=== PATIENT | male | born 1960 | race Caucasian/White ===

== ENCOUNTER 2022-09-19 16:21 | Inpatient (IN) ==
[2022-09-19 19:17] LABS: Hematocrit (blood only) 29.5 % (40.1-51.0); Hemoglobin 10.8 g/dl (14.0-18.0); Mean Corpuscular Hemoglobin 32.8 pg (25.0-34.0); Mean Corpuscular Hgb Conc 36.6 g/dL (32.0-36.0); Mean Corpuscular Volume 89.7 fL (80.0-100.0); Mean Platelet Volume 9.3 fL (9.4-12.4); Platelet Count 355 K/uL (130-400); RDW Coefficient of Variation 15.1 % (11.5-14.5); RDW Standard Deviation 49.1 fL (36.4-46.3); Red Blood Count 3.29 M/uL (4.63-6.08); White Blood Count 17.84 K/ul (4.8-10.8)
[2022-09-19 19:33] LABS: Basophils # (auto) 0.02 K/uL (0-0.2); Basophils % (auto) 0.1 %; Eosinophils # (auto) 0.03 K/uL (0-0.50); Eosinophils % (auto) 0.2 %; Immature Granulocytes # (auto) 0.48 K/uL (0.00-0.02); Immature Granulocytes % (auto) 2.7 %; Lymphocytes # (auto) 0.32 K/uL (1.2-3.4); Lymphocytes % (auto) 1.8 %; Monocytes % (auto) 4.5 %; Neutrophils # (auto) 16.19 K/uL (1.4-6.5); Neutrophils % (auto) 90.7 %
[2022-09-19 20:34] LABS: Alanine Aminotransferase 145 U/L (7-52); Albumin Level 2.6 gm/dl (3.4-5.0); Anion Gap 9 (3-11); Aspartate Aminotransferase 147 U/L (13-39); Carbon Dioxide 25 mmol/L (21-32); Chloride 91 mmol/L (98-107); Globulin 2.5 gm/dl (2.5-4.0); Glucose 113 mg/dl (70-99(Fasting)); Potassium 2.7 mmol/L (3.5-5.1); Sodium 125 mmol/L (136-145); Total Protein 5.1 gm/dl (6.0-8.3)
--- NOTE | 2022-09-19 21:10 | Ultrasound Report ---
US abdomen limited CLINICAL HISTORY: Jaundice, outpt elev bilirubin TECHNIQUE: Multiple real-time sonographic images of the right upper quadrant were obtained. Comparison: None available at the time of this dictation. FINDINGS: Liver is heterogeneous and enlarged. Multiple hypoechoic areas are seen measuring up to 8.1 x 3.5 x 7 .6 cm. No intrahepatic ductal dilatation is seen. The gallbladder is distended. There is a small am ount of sludge. The gallbladder wall measures 2 mm. Trace pericholecystic fluid is seen. The common d uct measures 2.5 cm in diameter at the level of the hepatic artery. Dilation of the intra and extrah epatic biliary ducts are noted. The pancreas is heterogeneous in the pancreatic duct is enlarged to 5 mm. There is an ill-defined pancreatic head lesion measuring approximately 3.5 x 3.5 x 3.3 cm. The right kidney shows normal echogenicity, cortical thickness and renal contour. The right kidney sh ows no evidence of hydronephrosis or mass. No ascites or free fluid is seen in Ambriz's pouch. IMPRESSION: Findings are concerning for pancreatic head malignancy with enlargement of the common bile duct and p ancreatic duct. Hypoechoic lesions in the liver are nonspecific, however metastatic lesions of pancre atic cancer is the diagnosis of exclusion. ACT 112: Negative or not required by law. Electronically signed by: Jacek Rey M.D. 09/19/2022 9:07 PM
--- NOTE | 2022-09-19 21:27 | Emergency Department Note ---
Impression & Plan Painless jaundice, Mass of pancreas, Transaminitis, Total bilirubin, elevated, Gait instability ED Provider Note HISTORY OF PRESENT ILLNESS: Patient is a 62-year-old male presenting with painless jaundice. Patient reports that he has had transient yellow discoloration of his skin and eyes for the last 2 weeks. He reports that discoloration seem to go away and then starting a week ago he has had persistent discoloration. He reports "I look like a banana." He denies any abdominal pain, nausea or vomiting. He reports his stool has been proctor in color and more loose than normal. He denies any fevers. He had blood work performed at his PCPs office today which showed trans aminitis and elevated bilirubin and he was referred to the emergency department for further evaluation. Patient does report that in the last 2 years he is increased his alcohol consumption and drinks 4 beers daily in - on the weekends. Denies any recent travel. Family at bedside reports that the patient has had normal mentation over the last week. Patient reports that in the last week he has had significant gait instability and has been unable to ambulate on his own. ROS: as above PHYSICAL EXAM: Constitutional: Patient appears in no acute distress. HENT: Head: Normocephalic and atraumatic. Eyes: EOMI, PERRL. Profound scleral icterus Mouth/Throat: Mucous membranes moist. Neck: Trachea midline. Neck supple. Cardiovascular: Tachycardic with regular rhythm. No murmurs, rubs or gallops. Intact distal pulses. Pulmonary/Chest: No respiratory distress. Breath sounds clear and equal bilaterally. No wheezes or rales. Abdominal: BS +. Abdomen soft, no tenderness, rebound or guarding. Back: No midline spinal tenderness, no paraspinal tenderness, no CVA tenderness. Musculoskeletal: No edema, tenderness or deformity noted. No appreciable asterixis Skin: Warm and dry. Diffuse jaundice Psychiatric: Appropriate mood and affect for situation. Neurological: Alert and keenly responsive. CN II-XII grossly intact, moving all extremities equally and fully. MDM: - Vitals signs showed tachycardia. - History obtained via patient. Patient presents with painless jaundice and gait instability. Patient reports he has been having yellow discoloration of his skin for the last 2 weeks, but it has been persistent in the last week. He reports in the last week he has had difficulty ambulating. - Chronic conditions affecting care: alcohol abuse - Differential diagnoses include, but are not limited to: Cholecystitis; cholelithiasis; pancreatic mass; Ascending cholangitis - Order placed for continuous cardiac monitoring. At this time, monitor showed rate of 110 bpm with normal sinus rhythm, per my interpretation. - External medical records reviewed. No previous documentation in our [facility] medical record. - EKG reviewed by myself showed normal sinus rhythm. Noted to have bifascicular block. Rate 94 bpm. Normal intervals. No previous EKGs noted. - Laboratory workup interpreted by myself showed leukocytosis (WBC 17.84); anemia (Hgb 10.8); hyponatremia (Na 125); hypokalemia (K 2.7); transaminitis (AST 147; ALT 145); elevated bilirubin (total bili 35); [] - Abdominal US showed findings concerning for pancreatic head malignancy with enlargement of the common bile duct and pancreatic duct. Also noted to have some nonspecific lesions in the liver concerning for possible metastasis. - Discussed results with patient and his family at bedside. Plan for admission. - CT abdomen/pelvis ordered for further evaluation of pancreatic mass. CT head also ordered to assess for any possible intracranial metastases as a cause for patient's ambulatory dysfunction. - Patient given 1L NS and 20 mEq IV potassium in ER. - MELD-Na score (based on estimated Cr of 1.0) 27 with estimated 90 day mortality of 27-32%. - Discussion was had with social science research assistant about patient's case and need for admission - Hospitalist, Dr. Dozier, consulted for admission. - Patient admitted to [facility] service for further evaluation and management. ASSESSMENT AND PLAN: Diagnosis: Painless jaundice; pancreatic malignancy; elevated bilirubin; transaminitis; gait instability; ambulatory dysfunction; hypokalemia; hyponatremia Plan: admit Past Med/Surg History Social History Smoking Status: Never smoker Feels Safe at Home: Yes Allergies Allergies Allergy/AdvReac Type Severity Reaction Status Date / Time No Known Allergies Allergy Unverified 09/19/22 22:44 Home Meds Home Medications Medication Instructions Recorded Confirmed No Known Home Medications 09/19/22 09/19/22 Results & Data (ED) Vital Signs Vital Signs - 24 hr 09/19/22 16:36 09/19/22 22:00 Temperature 37.0 C Temperature Source Oral Pulse Rate 112 H Pulse Rate [Apical] 81 Pulse Rhythm Regular Pulse Strength Normal Respiratory Rate 19 14 Respiratory Effort / Characteristics Non-Labored Non-Labored Respiratory Depth Normal Normal Respiratory Pattern Regular Blood Pressure 121/74 Blood Pressure [Right Arm] 131/76 Blood Pressure Mean 89 Blood Pressure Mean [Right Arm] 94 Blood Pressure Position Sitting Pulse Oximetry 97 99 Oxygen Delivery Method Room Air Room Air Sepsis Recent Fever Within 48 Hours No Sepsis New/Unexplained Change in Mental Status N/A Sepsis Action Taken by Nursing No Action Required Laboratory Data 09/19/22 18:35 09/19/22 18:35 Lab Results 09/19/22 09/19/22 09/19/22 Range/Units 18:35 18:35 21:47 WBC 17.84 H (4.8-10.8) K/ul RBC 3.29 L (4.63-6.08) M/uL Hgb 10.8 L (14.0-18.0) g/dl Hct 29.5 L (40.1-51.0) % MCV 89.7 (80.0-100.0) fL MCH 32.8 (25.0-34.0) pg MCHC 36.6 H (32.0-36.0) g/dL RDW Std Deviation 49.1 H (36.4-46.3) fL RDW Coeff of Jael 15.1 H (11.5-14.5) % Plt Count 355 (130-400) K/uL MPV 9.3 L (9.4-12.4) fL Immature Gran % (Auto) 2.7 % Neut % (Auto) 90.7 % Lymph % (Auto) 1.8 % [place] % (Auto) 4.5 % Eos % (Auto) 0.2 % Baso % (Auto) 0.1 % Neut # (Auto) 16.19 H (1.4-6.5) K/uL Lymph # (Auto) 0.32 L (1.2-3.4) K/uL [place] # (Auto) 0.80 (0.24-0.82) K/uL Eos # (Auto) 0.03 (0-0.50) K/uL Baso # (Auto) 0.02 (0-0.2) K/uL Immature Gran # (Auto) 0.48 H (0.00-0.02) K/uL PT (9.0-12.0) Seconds INR (0.9-1.1) Sodium 125 L (136-145) mmol/L Potassium 2.7 L (3.5-5.1) mmol/L Chloride 91 L (98-107) mmol/L Carbon Dioxide 25 (21-32) mmol/L Anion Gap 9 (3-11) BUN TNP Creatinine TNP Est Cr Clr Drug Dosing TNP Est GFR ( Amer) TNP Est GFR (Non-Af Amer) TNP BUN/Creatinine Ratio TNP Glucose 113 H (70-99(Fasting)) mg/dl Calcium 8.0 L (8.5-10.1) mg/dl Total Bilirubin 35.0 H (0.2-1.0) mg/dl AST 147 H (13-39) U/L ALT 145 H (7-52) U/L Alkaline Phosphatase TNP Ammonia 36.0 (18-72) umol/L Total Protein 5.1 L (6.0-8.3) gm/dl Albumin 2.6 L (3.4-5.0) gm/dl Globulin 2.5 (2.5-4.0) gm/dl Albumin/Globulin Ratio 1.0 (0.9-2) Lipase TNP 09/19/22 Range/Units 21:47 WBC (4.8-10.8) K/ul RBC (4.63-6.08) M/uL Hgb (14.0-18.0) g/dl Hct (40.1-51.0) % MCV (80.0-100.0) fL MCH (25.0-34.0) pg MCHC (32.0-36.0) g/dL RDW Std Deviation (36.4-46.3) fL RDW Coeff of Jael (11.5-14.5) % Plt Count (130-400) K/uL MPV (9.4-12.4) fL Immature Gran % (Auto) % Neut % (Auto) % Lymph % (Auto) % [place] % (Auto) % Eos % (Auto) % Baso % (Auto) % Neut # (Auto) (1.4-6.5) K/uL Lymph # (Auto) (1.2-3.4) K/uL [place] # (Auto) (0.24-0.82) K/uL Eos # (Auto) (0-0.50) K/uL Baso # (Auto) (0-0.2) K/uL Immature Gran # (Auto) (0.00-0.02) K/uL PT 20.9 H (9.0-12.0) Seconds INR 2.0 H (0.9-1.1) Sodium (136-145) mmol/L Potassium (3.5-5.1) mmol/L Chloride (98-107) mmol/L Carbon Dioxide (21-32) mmol/L Anion Gap (3-11) BUN Creatinine Est Cr Clr Drug Dosing Est GFR ( Amer) Est GFR (Non-Af Amer) BUN/Creatinine Ratio Glucose (70-99(Fasting)) mg/dl Calcium (8.5-10.1) mg/dl Total Bilirubin (0.2-1.0) mg/dl AST (13-39) U/L ALT (7-52) U/L Alkaline Phosphatase Ammonia (18-72) umol/L Total Protein (6.0-8.3) gm/dl Albumin (3.4-5.0) gm/dl Globulin (2.5-4.0) gm/dl Albumin/Globulin Ratio (0.9-2) Lipase Administered Medications Potassium Chloride (K Vin / Wtr) 10 meq in 100 mls @ 100 mls/hr IV Q1H CHELSI; Protocol Stop: 09/19/22 23:44 Last Admin: 09/19/22 22:18 Dose: 100 mls/hr Documented By: DANIEL Discontinued Medications Sodium Chloride (Nss 1000ml) 1,000 mls @ 999 mls/hr IV .Q1H1M ONE Stop: 09/19/22 22:33 Last Admin: 09/19/22 22:18 Dose: 999 mls/hr Documented By: DANIEL Imaging Data Radiologist's Impression: Abdomen Ultrasound 09/19/22 17:13 US abdomen limited CLINICAL HISTORY: Jaundice, outpt elev bilirubin TECHNIQUE: Multiple real-time sonographic images of the right upper quadrant were obtained. Comparison: None available at the time of this dictation. FINDINGS: Liver is heterogeneous and enlarged. Multiple hypoechoic areas are seen measuring up to 8.1 x 3.5 x 7.6 cm. No intrahepatic ductal dilatation is seen. The gallbladder is distended. There is a small amount of sludge. The gallbladder wall measures 2 mm. Trace pericholecystic fluid is seen. The common duct measures 2.5 cm in diameter at the level of the hepatic artery. Dilation of the intra and extrahepatic biliary ducts are noted. The pancreas is heterogeneous in the pancreatic duct is enlarged to 5 mm. There is an ill-defined pancreatic head lesion measuring approximately 3.5 x 3.5 x 3.3 cm. The right kidney shows normal echogenicity, cortical thickness and renal contour. The right kidney shows no evidence of hydronephrosis or mass. No ascites or free fluid is seen in Ambriz's pouch. IMPRESSION: Findings are concerning for pancreatic head malignancy with enlargement of the common bile duct and pancreatic duct. Hypoechoic lesions in the liver are nonspecific, however metastatic lesions of pancreatic cancer is the diagnosis of exclusion. ACT 112: Negative or not required by law. Electronically signed by: Jacek Rey M.D. 09/19/2022 9:07 PM Discharge Plan Visit Data Chief Complaint: Abnormal Labs/Diagnostic Testing Stated Complaint: ABNORMAL LABS,REF BY DOC ED Provider: Debbie Sheriff Discharge Problem: Painless jaundice, Mass of pancreas, Transaminitis, Total bilirubin, elevated, Gait instability Forms Stand Alone Forms: My Prolify Prescriptions Prescriptions: No Action No Known Home Medications Referrals Referrals: Rik Redding [Primary Care Provider] -
[2022-09-19] MEDS ORDERED: SODIUM CHLORIDE 0.9% 1000ML 1,000 ML IV ONE (21:33)
[2022-09-19] MEDS: POTASSIUM CHLORIDE / WTR 10 MEQ/100 ML PLCT IV SCH ×2 (22:18→23:16)
--- NOTE | 2022-09-19 22:21 | History & Physical Report ---
Date of Service September 19, 2022 Assessment & Plan (1) Painless jaundice: Plan: 62-year-old male presenting with 2 weeks of painless jaundice. Liver studies significant for obstructive as well as hepatocellular pattern with marked elevation of total bilirubin = 35, AST = 147, ALT = 145. Imaging findings as above with large pancreatic head mass concerning for malignancy as well as evidence of metastatic disease to liver. Patient and family made aware of these findings. Patient reports that he is "not giving up". Admit to medical Check CA 19-9 GI consultation appreciated Oncology consultation appreciated We will keep patient n.p.o. for now for possible biopsy (2) Mass of pancreas: Plan: As above, most highly concerning for pancreatic malignancy. CA 19-9 ordered GI and oncology consultations appreciated Repeat LFTs in a.m. (3) Gait instability: Plan: Patient reports approximately 1 week of gait instability. He does have significant history of frequent alcohol use. Last drink 9 days agomost likely out of window for acute withdrawal. We will check B12 and folate level with a.m. labs High-dose thiamine 500 mg IV for now F/E/Nnormal saline at 100 mL/h x 2 L +10 mEq KCl per liter, repeat chemistry in the morning, n.p.o. for now ProphylaxisLovenox, patient at high risk for DVT given suspected pancreatic cancer Codefull per discussion with patient Dispositionadmit to medical History of Present Illness Chief Complaint: Painless jaundice Primary Care Provider: Rik Redding Rik Kebede is a pleasant 62-year-old male with no significant past medical history presenting with painless jaundice. Patient first noticed intermittent yellowing of his skin and eyes around the end of July he reports his skin would become yellow in color and last for a day or so and then resolve. Over the last 2 weeks he has noted that the jaundice and icterus has been persistent. He has deep yellowing of the skin and eyes as well as tea colored urine. Patient was seen by his primary care physician and had blood work performed which showed elevation of his liver studies therefore he was sent to the ER. Patient reports unsteady gait over the last week. He denies falling. Also reports decreased appetite but increased thirst, sometimes drinking up to 3 gallons of water per day. He notes increased bulk to his stool and that they are proctor in color. Otherwise, patient also denies headache, visual changes, chest pain, shortness of breath. Denies abdominal pain, distention, bloating, nausea, vomiting. Denies weight loss. Patient shoes tobacco. Does drink regularly, reports 4-5 beers daily during the week and up to 12/day on weekends. No history of withdrawal. His last drink was 9 days ago. In the ER patient is afebrile, hemodynamically stable, no acute distress. Son and ex- are at bedside. ER course: Potassium 20 mEq IV, normal saline x1 L Allergies Allergy/AdvReac Type Severity Reaction Status Date / Time No Known Allergies Allergy Unverified 09/19/22 22:44 Home Medications Medication Instructions Recorded Confirmed Type No Known Home Medications 09/19/22 09/19/22 History Past Med/Surg History Medical History No significant past medical history Surgical History No significant past surgical history Family History (Updated 09/20/22 @ 00:32 by Isabel Dozier DO) Other Colorectal cancer Social History (Updated 09/20/22 @ 00:32 by Isabel Dozier DO) Smoking Status: Never smoker Tobacco Type: Smokeless Tobacco (Dip or Chew) Hx Alcohol Use: Yes Hx Substance Use: No Feels Safe at Home: Yes Review of Systems Review of Systems: All systems reviewed & are unremarkable except as noted in HPI & below Physical Exam Physical Exam: General: patient resting comfortably, NAD, non-toxic in appearance, AA&O x 4 Skin: warm, dry, intact, + jaundice, + bruising on right knee HEENT: NC/AT, PERRL, EOMI, + icteric sclera, conjunctiva without injection, external ear normal to inspection and nontender, nares patent, moist mucus membranes, dentition intact, no oropharyngeal lesions, jaundice of oral mucosa noted, neck supple, trachea midline, no LAD, no thyromegaly, no JVD Heart: +S1/S2, regular, no m/r/g Lungs: equal air entry bilaterally, no rales/rhonchi/wheezes Abd: +BS, soft, NT/ND, no masses/organomegaly/ascites Ext: warm, 2+ pulses in UE/LE bilaterally, no clubbing/cyanosis, 2+ pitting edema bilateral lower extremity Neuro: nonfocal, patient AA&O x 4, speech intact, no facial droop, moving all extremities on command with equal strength 5/5, no asterixis Results & Data Results & Data ([facility]) Vital Signs (Past 12 Hours) Vital Signs Temp Pulse Resp BP Pulse Ox O2 Del Method 09/19/22 16:36 37.0 C 112 H 19 121/74 97 Room Air Laboratory Results Laboratory Results WBC 17.84 K/ul (4.8-10.8) H 09/19/22 18:35 RBC 3.29 M/uL (4.63-6.08) L 09/19/22 18:35 Hgb 10.8 g/dl (14.0-18.0) L 09/19/22 18:35 Hct 29.5 % (40.1-51.0) L 09/19/22 18:35 MCV 89.7 fL (80.0-100.0) 09/19/22 18:35 MCH 32.8 pg (25.0-34.0) 09/19/22 18:35 MCHC 36.6 g/dL (32.0-36.0) H 09/19/22 18:35 RDW Std Deviation 49.1 fL (36.4-46.3) H 09/19/22 18:35 RDW Coeff of Jael 15.1 % (11.5-14.5) H 09/19/22 18:35 Plt Count 355 K/uL (130-400) 09/19/22 18:35 MPV 9.3 fL (9.4-12.4) L 09/19/22 18:35 Immature Gran % (Auto) 2.7 % 09/19/22 18:35 Neut % (Auto) 90.7 % 09/19/22 18:35 Lymph % (Auto) 1.8 % 09/19/22 18:35 [place] % (Auto) 4.5 % 09/19/22 18:35 Eos % (Auto) 0.2 % 09/19/22 18:35 Baso % (Auto) 0.1 % 09/19/22 18:35 Neut # (Auto) 16.19 K/uL (1.4-6.5) H 09/19/22 18:35 Lymph # (Auto) 0.32 K/uL (1.2-3.4) L 09/19/22 18:35 [place] # (Auto) 0.80 K/uL (0.24-0.82) 09/19/22 18:35 Eos # (Auto) 0.03 K/uL (0-0.50) 09/19/22 18:35 Baso # (Auto) 0.02 K/uL (0-0.2) 09/19/22 18:35 Immature Gran # (Auto) 0.48 K/uL (0.00-0.02) H 09/19/22 18:35 PT 20.9 Seconds (9.0-12.0) H 09/19/22 21:47 INR 2.0 (0.9-1.1) H 09/19/22 21:47 Sodium 125 mmol/L (136-145) L 09/19/22 18:35 Potassium 2.7 mmol/L (3.5-5.1) L 09/19/22 18:35 Chloride 91 mmol/L (98-107) L 09/19/22 18:35 Carbon Dioxide 25 mmol/L (21-32) 09/19/22 18:35 Anion Gap 9 (3-11) 09/19/22 18:35 BUN TNP 09/19/22 18:35 Creatinine TNP 09/19/22 18:35 Est Cr Clr Drug Dosing TNP 09/19/22 18:35 Est GFR ( Amer) TNP 09/19/22 18:35 Est GFR (Non-Af Amer) TNP 09/19/22 18:35 BUN/Creatinine Ratio TNP 09/19/22 18:35 Glucose 113 mg/dl (70-99(Fasting)) H 09/19/22 18:35 Calcium 8.0 mg/dl (8.5-10.1) L 09/19/22 18:35 Total Bilirubin 35.0 mg/dl (0.2-1.0) H 09/19/22 18:35 AST 147 U/L (13-39) H 09/19/22 18:35 ALT 145 U/L (7-52) H 09/19/22 18:35 Alkaline Phosphatase TNP 09/19/22 18:35 Ammonia 36.0 umol/L (18-72) 09/19/22 21:47 Troponin I High Sens 38.9 pg/ml (0-20) H 09/19/22 18:35 Total Protein 5.1 gm/dl (6.0-8.3) L 09/19/22 18:35 Albumin 2.6 gm/dl (3.4-5.0) L 09/19/22 18:35 Globulin 2.5 gm/dl (2.5-4.0) 09/19/22 18:35 Albumin/Globulin Ratio 1.0 (0.9-2) 09/19/22 18:35 Lipase TNP 09/19/22 18:35 Urine Color Dark Yellow 09/19/22 22:32 Urine Appearance Clear (Clear) 09/19/22 22:32 Urine pH 6.5 (4.5-7.5) 09/19/22 22:32 Ur Specific [place] 1.010 (1.000-1.030) 09/19/22 22:32 Urine Protein Negative (Negative) 09/19/22 22:32 Urine Glucose (UA) Negative (Negative) 09/19/22 22:32 Urine Ketones Negative (Negative) 09/19/22 22:32 Urine Blood Negative (Negative) 09/19/22 22:32 Urine Nitrite Positive (Negative) A 09/19/22 22:32 Urine Bilirubin 3+ (Negative) H 09/19/22 22:32 Urine Urobilinogen Negative (Negative) 09/19/22 22:32 Ur Leukocyte Esterase Negative (Negative) 09/19/22 22:32 Urine WBC (Auto) 0 /hpf (0-5) 09/19/22 22:32 Urine RBC (Auto) 0-4 /hpf (0-4) 09/19/22 22:32 U Hyaline Cast (Auto) 0 /lpf (0-5) 09/19/22 22:32 U Epithel Cells (Auto) 0-5 /lpf (0-5) 09/19/22 22:32 Urine Bacteria (Auto) Negative (Negative) 09/19/22 22:32 SARS-CoV-2, RNA, NAAT NEGATIVE (NEGATIVE) 09/19/22 Unknown Impressions Abdomen Ultrasound 09/19/22 17:13 US abdomen limited CLINICAL HISTORY: Jaundice, outpt elev bilirubin TECHNIQUE: Multiple real-time sonographic images of the right upper quadrant were obtained. Comparison: None available at the time of this dictation. FINDINGS: Liver is heterogeneous and enlarged. Multiple hypoechoic areas are seen measuring up to 8.1 x 3.5 x 7.6 cm. No intrahepatic ductal dilatation is seen. The gallbladder is distended. There is a small amount of sludge. The gallbladder wall measures 2 mm. Trace pericholecystic fluid is seen. The common duct measures 2.5 cm in diameter at the level of the hepatic artery. Dilation of the intra and extrahepatic biliary ducts are noted. The pancreas is heterogeneous in the pancreatic duct is enlarged to 5 mm. There is an ill-defined pancreatic head lesion measuring approximately 3.5 x 3.5 x 3.3 cm. The right kidney shows normal echogenicity, cortical thickness and renal contour. The right kidney shows no evidence of hydronephrosis or mass. No ascites or free fluid is seen in Ambriz's pouch. IMPRESSION: Findings are concerning for pancreatic head malignancy with enlargement of the common bile duct and pancreatic duct. Hypoechoic lesions in the liver are nonspecific, however metastatic lesions of pancreatic cancer is the diagnosis of exclusion. ACT 112: Negative or not required by law. Electronically signed by: Jacek Rey M.D. 09/19/2022 9:[address] abdomen pelvis with contrast: Per stat rad3.7 cm pancreatic head mass causing severe intra and extrahepatic biliary dilatation. Pancreatic duct is also dilated measuring up to 0.8 cm. Findings are consistent with an obstructing primary pancreatic malignancy. Metastatic disease to the posterior right lobe of the liver with at least 2 masses measuring up to 3.5 cm. Numerous tiny nodules within bilateral lower lungs CT head: Per stat radintracranially unremarkable noncontrasted study. Mild mucosal thickening of the left maxillary sinus. 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 ECG Additional Comments: Per my evaluation study reveals normal sinus rhythm at 94 bpm, right bundle branch block present, left anterior fascicular block, NC = 160, QRS = 172, QTc = 575 Code Status & VTE Plan VTE Prophylaxis Plan VTE Prophylaxis will be ordered: Yes PG Care Time/CCT Total # of Minutes Spent Total Time Spent with Patient: Total time spent is greater than 50% in coordination of care (as documented) at patient's floor/unit and/or counseling patient: Coding Level of Care Code 04189 INT INP/OBS CARE MIN Diagnoses Painless jaundice R17 Mass of pancreas K86.89 Gait instability R26.81
[2022-09-19 22:37] LABS: Prothrombin Time 20.9 Seconds (9.0-12.0)
[2022-09-19 23:15] LABS: Appearance Urine Clear (Clear); Bacteria Urine Automated Negative (Negative); Blood Urine Negative (Negative); Cast Urine Automated 0 /lpf (0-5); Color Urine Dark Yellow; Epithelial Cell Urine Auto 0-5 /lpf (0-5); Glucose Urine UA Negative (Negative); Ketones Urine Negative (Negative); Leukocyte Esterase Urine Negative (Negative); Nitrite Urine Positive (Negative); Protein Urine Negative (Negative); RBC Urine Automated 0-4 /hpf (0-4); Urobilinogen Urine Negative (Negative); WBC Urine Automated 0 /hpf (0-5); pH Urine 6.5 (4.5-7.5)
[2022-09-19 23:21] LABS: Troponin I High Sensitivity 38.9 pg/ml (0-20)
[2022-09-19 23:31] LABS: Bilirubin Urine 3+ (Negative)
[2022-09-19] MEDS ORDERED: OPTIRAY 350 100ml IV ONE (23:48)
[2022-09-20] MEDS ORDERED: POTASSIUM CHLORIDE CRTAB 20 MEQ TABCR PO STA (01:47)
[2022-09-20] MEDS ORDERED: ONDANSETRON INJ 2 MG/ML 2 ML VIAL IV PRN (01:47)
[2022-09-20] MEDS ORDERED: POLYETHYLENE (MIRALAX) 17 GM PACK PO PRN (01:47)
[2022-09-20] MEDS ORDERED: DOCUSATE SODIUM 100 MG CAP PO PRN (01:47)
[2022-09-20] MEDS ORDERED: ZOLPIDEM TARTRATE 5 MG TAB PO ONE (02:08)
[2022-09-20] MEDS: POTASSIUM CHLORIDE 10 MEQ in SODIUM CHLORIDE 0.9% 1000ML 1,000 ML IV SCH ×2 (02:25→13:51)
[2022-09-20] MEDS: THIAMINE HCL 500 MG in SODIUM CHLORIDE 0.9% 50 ML IV SCH ×3 (02:26→17:39)
[2022-09-20] MEDS ORDERED: ENOXAPARIN INJ 40 MG/0.4 ML SYR SQ SCH (06:00)
[2022-09-20] MEDS ORDERED: INDOMETHACIN 50 MG SUPP PR ONE (07:09)
--- NOTE | 2022-09-20 07:29 | Hospitalist Progress Note ---
Date of Service September 20, 2022 Assessment & Plan (1) Painless jaundice: (2) Mass of pancreas: (3) Gait instability: Plan 62-year-old male presenting with 2 weeks of painless jaundice. Liver studies significant for obstructive as well as hepatocellular pattern with marked elevation of total bilirubin = 35, AST = 147, ALT = 145. Imaging findings as above with large pancreatic head mass concerning for malignancy as well as evidence of metastatic disease to liver. Patient and family made aware of these findings. Patient reports that he is "not giving up". 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 Jean-Claude Corral on 09/22/2022 * If he has s/s of cholangitis, or any decompensation due to biliary obstruction and not optimized for EUS/ERCP, then would consider transfer to tertiary care center with IR support for percutaneous drain placement. - Oncology consulted Patient's diet advanced for now --- Vitamin K received --- K and Mg received, recheck in AM Mass of pancreas: - As above, most highly concerning for pancreatic malignancy. CA 19-9 ordered GI and oncology consultations appreciated --- Trend LFTs --- Pend EUS/ERCP Gait instability: - Patient reports approximately 1 week of gait instability. - He does have significant history of frequent alcohol use. Last drink 9 days ago most likely out of window for acute withdrawal. We will check B12 and folate level with a.m. labs High-dose thiamine 500 mg IV for now --- PT/OT ordered F/E/N - Regular diet, no IVF, NPO midnight 09/22 for EUS/ERCP ProphylaxisLovenox, patient at high risk for DVT given suspected pancreatic cancer Codefull per discussion with patient Dispositionadmit to medical Admission and Anticipated Discharge Date Admission Date: September 19, 2022 Supervising Physician Co-Signing Physician Notes patient has pancreatic head mass with probable mets to liver. CT head unremarkable. At this time we are consulting hematology/oncology and gastroenterology. Plan for ERCP on Sunday as long as electrolytes are corrected appropriately. Continue to monitor his CMP and CBC to ensure he does not develop cholangitis. Patient is not interested at this time on transfer to tertiary care facility but certainly we understand that this may be necessary if patient is unable to undergo an ERCP and would need a percutaneous drain placement. We will continue to monitor him For his potassium, we will replete as needed and also correct hyponatremia with normal saline; we did obtain urine studies which show no signs of SIADH Subjective Patient was sitting at bedside upon arrival, states that he is feeling well this morning without any pain. He denies any chest pain, dyspnea, abdominal pain, or bowel/bladder changes. He notes that he continues to produce dark urine. Discussed diagnosis and prognosis with patient who expressed understanding and asked questions. Patient endorses good support system, but resources were discussed including nurse navigator and palliative care if he chooses. Patient strongly emphasizes that he will 'fight this and beat this'. Patient notes that his jaundice and weakness have been ongoing for approximately two weeks. He also notes that his last drink was 9 days ago and that he has no desire to ever drink again, in an effort to improve his outcome. Review of Systems Review of Systems: As per HPI Physical Exam Physical Exam: General: patient resting comfortably, NAD, non-toxic in appearance, AA&O x 4 Skin: warm, dry, intact, + jaundice, + bruising on right knee HEENT: NC/AT, PERRL, EOMI, + icteric sclera, conjunctiva without injection, MMM, jaundice of oral mucosa, no LAD, no thyromegaly, no JVD Heart: +S1/S2, regular, no m/r/g Lungs: CTAB, no rales/rhonchi/wheezes Abd: +BS, soft, NT/ND, no masses/organomegaly/ascites Ext: warm, 2+ pulses in UE/LE bilaterally, 2+ pitting edema bilateral lower extremity Neuro: patient AA&O x 4, speech intact Results & Data Results & Data ([facility]) Vital Signs (Past 12 Hours) Vital Signs Temp Pulse Pulse Resp BP Pulse Ox O2 Del Method 09/20/22 01:56 36.9 C 92 H 18 137/81 100 Room Air 09/20/22 00:00 78 16 131/76 99 Room Air 09/19/22 22:00 81 14 131/76 99 Room Air Resident Activity Tracking Resident Involvement: Resident Care Provided Care Provided: Adult Hospital Medicine
--- NOTE | 2022-09-20 07:48 | CT Scan Report ---
CT OF THE HEAD WITHOUT CONTRAST CLINICAL HISTORY: gait instability COMPARISON STUDY: No previous studies for comparison. CT DOSE: 1171.59 mGy.cm TECHNIQUE: Helical axial images of the head were obtained without IV contrast. Automated exposure con trol was utilized for the study. A dose lowering technique was utilized adhering to the principles o f ALARA. FINDINGS: No acute intracranial hemorrhage, midline shift or mass effect is present. The ventricular system is unremarkable. The basal cisterns are patent. No extra-axial collections are present. There are no findings to suggest acute dural sinus thrombosis or acute territorial infarct. No significant calvarial abnormalities are present. There is mild sinus mucosal thickening. IMPRESSION: No acute intracranial findings. ACT 112: Negative or not required by law. Electronically signed by: Ted Dobson M.D. 09/20/2022 7:47 AM
--- NOTE | 2022-09-20 08:34 | CT Scan Report ---
ABDOMEN AND PELVIS CT WITH IV CONTRAST CT DOSE: HISTORY: painless jaundice TECHNIQUE: Multiaxial CT images of the abdomen and pelvis were performed following the use of intrave nous contrast. A dose lowering technique was utilized adhering to the principles of ALARA. COMPARISON STUDY: None. FINDINGS: Calcified mediastinal and hilar lymph nodes. Scattered tree-in-bud nodular opacities seen w ithin the lung bases and a few scattered punctate calcified granulomas. This favors a chronic infecti ous bronchiolitis. No pneumoperitoneum. No pneumatosis. No suspicious lytic or blastic osseous lesion s. The spleen, adrenal glands, and kidneys are unremarkable. No hydronephrosis. Normal caliber abdomi nal aorta. Single mildly enlarged gastrohepatic lymph node on image 146 measuring 14 mm. The bladder is decompressed by Beavers catheter. No pelvic free fluid. Colonic diverticulosis. No evidence for acut e diverticulitis. Moderate fecal retention is noted. No dilated loops of bowel to suggest an obstruct ion. There are severe intra and extrahepatic bile duct dilatation to the level of the distal common b ile duct. The gallbladder is also severely distended. The main pancreatic duct is mildly distended. T here is an ill-defined hypodense mass at the pancreatic head which measures approximately 3.9 cm best seen image 215. Therefore, these findings are highly suspicious for a pancreatic adenocarcinoma. The re are few ill-defined hypodensities within the liver with the largest in the right hepatic lobe geovanna uring 4.2 cm. These likely represent metastatic disease. The superior mesenteric artery is patent. Th e pancreatic mass appears to abut and may partially encase the superior mesenteric artery best seen o n image 220. There is mild narrowing of approximately 20% within the proximal superior mesenteric vei n on image 220. The splenic vein is patent. IMPRESSION: 1. An ill-defined heterogeneous mass within the pancreatic head measuring approximately 3.9 cm. This appears to account for the biliary and pancreatic duct dilatation. Therefore, this is highly suspicio us for a pancreatic adenocarcinoma. This may partially encase the traversing superior mesenteric ras ry and results in mild narrowing of the traversing superior mesenteric vein. 2. A few ill-defined hypodensities within the liver which are highly suspicious for metastatic diseas e. 3. A single mildly enlarged gastrohepatic lymph node. 4. Scattered tree-in-bud nodular airspace opacities within the lung bases favor a chronic infectious bronchiolitis. ACT 112: Negative or not required by law. Electronically signed by: Timothy Alamo M.D. 09/20/2022 8:33 AM
[2022-09-20] MEDS ORDERED: LACTATED RINGER'S 1,000 ML IV SCH (11:15)
--- NOTE | 2022-09-20 12:41 | Gastrointestinal Consultation ---
Date of Consultation September 20, 2022 Assessment & Plan (1) Painless jaundice: (2) Mass of pancreas: (3) Transaminitis: (4) Liver lesion: Patient is a 62 years old male who presented with painless jaundice, found to have elevated LFTs, and abdominal imaging studies concerning for pancreatic head mass suspicious for adenocarcinoma, with also several liver lesions concerning for possible metastatic processes. - Obtain Ca 19-9 - Correct electrolytes (Na, K) - Vit K 5mg IV x 1 , monitor INR - Trend LFTs - NPO after midnight on 09/22 0001Plan for EUS/ERCP by Dr. Jean-Claude Corral on 09/22/2022 - If he has s/s of cholangitis, or any decompensation due to biliary obstruction and not optimized for EUS/ERCP, then would consider transfer to tertiary care center with IR support for percutaneous drain placement. - Oncology consulted Supervising Physician Co-Signing Physician Notes 62 y/o M who presented with painless jaundice that he noticed over the past couple weeks. Family and co-workers noticed he had turned yellow a couple weeks ago and family had been urging him to come to the hospital. He states he is otherwise feeling well and had no other symptoms including weight loss, abdominal pain, N/V, fevers, chills, diarrhea, signs of GI bleeding. On admission he had a CT scan found to have a pancreatic head mass causing biliary obstruction nad partially encasing the SMA with concern for metastatic liver lesions. WBC 17k, total bili 35, AST 147, ALT 145, ALP, K 2.7, Na 125. On exam patient is diffusely jaundiced with scleral icterus and abdomen is soft and non- tender to palpation. Had originally planned for EUS/ERCP today however patient has multiple lab abnormalities (K, Na, and INR) that need to be corrected. Will plan for EUS/ERCP on Sunday after lab abnormalities are corrected. Would give IV vitamin K until Sunday given elevated INR. Daily CBC and CMP. Check CA 19-9 levels. NPO at midnight on . Cover with IV abx for cholangitis given leukocytosis though my suspicion for this is very low as he is afebrile without abd pain and clinically doing well. If he were to decompensate before Friday 09/22 would recommend transfer to tertiary care center for a percutaneous drain placement. Mable Molina, DO Gastroenterology and Hepatology History of Present Illness Reason for Consultation: Pancreatic head mass Requesting Physician: Dr. Isabel Dozier Attending Physician: Dr. Mable Molina History of Present Illness Patient is a 62 years old male with no significant past medical history who presented with jaundice which he started to notice about 2 weeks ago. He repor ts noticing deep yellowing of his skin, whites of his eyes also having tea colored urine. Went to his PCP, who performed outpatient labs and noted that his LFTs were high, thus he was sent to the ER. Patient denies any associated fevers, chills, chest pain, shortness of breath, abdominal pain, nausea, vomiting, or changes in his bowel habits. He does feel quite unsteady on his gait but no falling. Upon evaluation here noted that his white cell count was elevated at 17, he is afebrile, INR up at 2, sodium and potassium low at 125 and 2.7 respectively. LFTs: Bilirubin 35, AST 147, ALT 145, alkaline phosphatase unable to be performed. Lipase not able to be performed. Abdominal imaging studies including abdominal ultrasound and CT abdomen pelvis with contrast showed signs of ill-defined heterogeneous mass within the pancreatic head measuring about 3.9 cm suspicious for pancreatic adenocarcinoma. This mass is partially encased transversing SMA resulting in narrowing of the transverse SMV. There is also biliary and pancreatic duct dilatation. Few ill-defined densities in the liver highly suspicious for metastatic disease. It appears he may also have infectious broncholithiasis He drinks about 5 beers on the weekdays, up to 12 on the weekends. He chews tobacco, denies any illicit drug uses. Denies liver or pancreas ca in the family. Mother w hx of colon ca ( at age 62). Pt denies ever having any colorectal cancer screening Allergies Allergy/AdvReac Type Severity Reaction Status Date / Time No Known Allergies Allergy Verified 09/20/22 11:19 Home Medications Medication Instructions Recorded Confirmed Type No Known Home Medications 09/19/22 09/19/22 History Patient History Medical History No significant past medical history Surgical History No significant past surgical history Family History Other Colorectal cancer Social History Smoking Status: Never smoker Tobacco Type: Smokeless Tobacco (Dip or Chew) Second Hand Exposure: No; Do You Dip or Chew Tobacco: Yes; Tobacco Cessation Education Requested by Patient: Yes Hx Alcohol Use: Yes Alcohol type: beer Hx Substance Use: No Preferred Language: Spanish Communication Ability: Effective Auto Service Mechanic Required: No Beliefs That Will Affect Care: None Current Living Situation: Family Current Living Situation Comment: lives with son and ex- in 1 story home. Other Information That Helps Us Care for You: No Feels Safe at Home: Yes Safety Concerns: Feels Safe At This Time Assistive Devices: None Assistive Devices Comment: reading glasses only Review of Systems Review of Systems: All systems reviewed & are unremarkable except as noted in HPI & below Physical Exam Constitutional: WD/WN, vitals as above well groomed, cooperative and comfortable Eyes: icteric sclera ENMT: external ear and nose normal, oropharynx normal Respiratory: normal respiratory effort, lungs clear to auscultation Cardiovascular: RRR, no murmur, no edema Gastrointestinal (Abdomen): normal bowel sounds, soft, nontender, no hepatosplenomegaly Skin: jaundice Neurologic: Motor/Sensory: no asterixis Psychiatric: A+Ox3, euthymic affect Lymphatic: no lymphedema Results & Data ([facility]) Vital Signs (Past 12 Hours) Vital Signs Temp Pulse Pulse Resp BP Pulse Ox O2 Del Method 09/20/22 11:21 37.7 C H 107 H 20 122/84 96 Room Air 09/20/22 07:44 36.7 C 98 H 16 125/77 94 Room Air 09/20/22 01:56 36.9 C 92 H 18 137/81 100 Room Air 09/20/22 00:00 78 16 131/76 99 Room Air
[2022-09-20] MEDS ORDERED: PHYTONADIONE 5 MG in DEXTROSE 5% 50 ML IV ONE (13:00)
[2022-09-20] MEDS ORDERED: MAGNESIUM SULFATE / D5W 1 GM/100 ML BAG IV ONE (13:00)
[2022-09-20 13:52] LABS: Estimated Average Glucose 85 mg/dl; Hemoglobin A1C 4.6 % (4.5-5.6)
[2022-09-20 13:56] LABS: Vitamin B12 > 1500 pg/ml (180-914)
--- NOTE | 2022-09-20 14:11 | Electrocardiogram Report ---
Test Reason : Blood Pressure : / mmHG Vent. Rate : 094 BPM Atrial Rate : 094 BPM P-R Int : 160 ms QRS Dur : 172 ms QT Int : 460 ms P-R-T Axes : 054 -55 069 degrees QTc Int : 575 ms Normal sinus rhythm Right bundle branch block Left anterior fascicular block Bifascicular block Left ventricular hypertrophy with repolarization abnormality Abnormal ECG No previous ECGs available Confirmed by Tomy Rockwell ([id number]) on 09/20/2022 11:16:42 AM Referred By: Rik Redding Confirmed By:Dmitry Rockwell
[2022-09-20 17:08] LABS: Albumin Level 2.2 gm/dl (3.4-5.0); BUN Creatinine Ratio 13.2 (10-20); Bilirubin,Total 26.3 mg/dl (0.2-1.0); Creatinine Clr Calc Pharmacy 95.7 ml/min; Est GFR (African American) 102.9 ml/min; Est GFR (Non-African American) 88.8 ml/min; Magnesium 2.4 mg/dl (1.7-2.4); Potassium 3.1 mmol/L (3.5-5.1); Total Protein 4.1 gm/dl (6.0-8.3)
[2022-09-20] MEDS ORDERED: PIPERACILLIN/TAZOBACTAM 3.375 GM (over 30 mins) IV ONE (19:30)
[2022-09-20 19:38] LABS: Bilirubin Direct 16.2 mg/dl (0-0.2)
[2022-09-20] MEDS: ACETAMINOPHEN 325 MG TAB PO PRN (22:30)
[2022-09-21] MEDS: PIPERACILLIN/TAZOBACTAM 3.375 GM in DEXTROSE 5% 100 ML IV SCH ×4 (00:02→23:28)
[2022-09-21] MEDS: THIAMINE HCL 500 MG in SODIUM CHLORIDE 0.9% 50 ML IV SCH ×3 (01:14→17:36)
--- NOTE | 2022-09-21 07:36 | Oncology Consultation ---
Date of Consultation September 21, 2022 Assessment & Plan (1) Mass of pancreas: (2) Liver lesion: (3) Electrolyte disturbance: (4) Anemia: Plan Yuval 62-year-old gentleman who presented with painless jaundice, abnormal LFTs and was found to have a pancreatic mass and liver lesions. Clinical presentation highly suggestive of metastatic pancreatic cancer. CA 19-9 pending at time of today's visit. He is scheduled for EUS/ERCP with stent placement and biopsy tomorrow. Will await results. - Would recommend CT chest for full staging. -Work-up for anemia including iron studies, reticulocyte count and LDH -If biopsy confirms pancreatic cancer, he will need Mediport placement for chemotherapy administration. -We will arrange for genetic testing as an outpatient given family history of colon cancer - will eventually benefit from palliative care evaluation If biopsy confirms pancreatic cancer Thank you for this consult. Oncology will continue following patient in the hospital. Please feel free to call if you have any further questions History of Present Illness Reason for Consultation: Concern for pancreatic malignancy Attending Physician: Isabel Dozier, History of Present Illness Pleasant 62-year-old gentleman who presented to the ER [facility] on 09/19/2022 with jaundice. He indicates that he noticed jaundice about 2 weeks prior to presentation. Patient was seen by his PCP who obtained blood work which revealed significant hyperbilirubinemia, transaminitis for which he was told to present to the ER. Labs obtained in the ER revealed total bilirubin of 35, ALT 147, AST 145. He was also found to have multiple electrolyte abnormalities with sodium of 125, potassium 2.7, chloride of 91. Coagulation panel also revealed PT of 20.9 and INR of 2.0. CBC significant for leukocytosis with white count of 17,000, hemoglobin 10.8, hematocrit of 29.5 and MCV of 89.7. Abdominal ultrasound on 09/19/2022 revealed multiple hypoechoic areas in the liver, dilatation of the intra and extrahepatic biliary ducts, enlarged pancreatic duct measuring 5 mm and ill-defined pancreatic head lesion measuring 3.5 x 3.[address] abdomen and pelvis on 09/19/2022 revealed ill-defined heterogeneous mass within the pancreatic head measuring 3.9 cm highly suspicious for pancreatic adenocarcinoma which be partially encase the transverse and superior mesenteric artery resulting in mild narrowing of the transverse and superior mesenteric vein, few ill-defined hypodensities within the liver suspicious for metastatic disease, single mildly enlarged gastrohepatic lymph node and scattered tree-in-bud nodular airspace opacities within the lungs favoring chronic infectious bronchiolitis. He denies chest pain, shortness of breath, abdominal pain, diarrhea, nausea, vomiting, weight loss. Endorses significant alcohol use and chews tobacco. States that his mother was diagnosed with colon cancer at the age of 60 Allergies Allergy/AdvReac Type Severity Reaction Status Date / Time No Known Allergies Allergy Verified 09/20/22 11:19 Home Medications Medication Instructions Recorded Confirmed Type No Known Home Medications 09/19/22 09/19/22 History Patient History Medical History No significant past medical history Surgical History No significant past surgical history Family History Other Colorectal cancer Social History Smoking Status: Never smoker Tobacco Type: Smokeless Tobacco (Dip or Chew) Second Hand Exposure: No; Do You Dip or Chew Tobacco: Yes; Tobacco Cessation Education Requested by Patient: Yes Hx Alcohol Use: Yes Alcohol type: beer Hx Substance Use: No Preferred Language: Swedish Communication Ability: Effective Lookback Coordinator Required: No Beliefs That Will Affect Care: None Current Living Situation: Family Current Living Situation Comment: lives with son and ex- in 1 story home. Other Information That Helps Us Care for You: No Feels Safe at Home: Yes Safety Concerns: Feels Safe At This Time Assistive Devices: None Assistive Devices Comment: reading glasses only Physical Exam Constitutional: WD/WN, vitals as above Eyes: Scleral icterus ENMT: external ear and nose normal, oropharynx normal Respiratory: normal respiratory effort, lungs clear to auscultation Cardiovascular: RRR, no murmur, no edema Gastrointestinal (Abdomen): normal bowel sounds, soft, nontender, no hepatosplenomegaly Results & Data ([facility]) Vital Signs (Past 12 Hours) Vital Signs Temp Pulse Resp BP Pulse Ox O2 Del Method 09/21/22 00:25 37.3 C 90 18 125/74 96 Room Air 09/20/22 23:20 38.3 C H 99 H 16 118/72 95 Room Air 09/20/22 22:27 39.1 C H 101 H 18 116/71 96 Room Air
[2022-09-21 08:00] LABS: INR 1.5 (0.9-1.1); Prothrombin Time 15.5 Seconds (9.0-12.0)
[2022-09-21 08:01] LABS: Alanine Aminotransferase 96 U/L (7-52); Anion Gap 4 (3-11); Aspartate Aminotransferase 79 U/L (13-39); Bilirubin,Total 27.7 mg/dl (0.2-1.0); Calcium 7.1 mg/dl (8.5-10.1); Carbon Dioxide 23 mmol/L (21-32); Chloride 102 mmol/L (98-107); Glucose 121 mg/dl (70-99(Fasting)); Potassium 2.9 mmol/L (3.5-5.1); Sodium 129 mmol/L (136-145)
[2022-09-21 08:05] LABS: Blood Urea Nitrogen 11 mg/dl (6-23); Creatinine Clr Calc Pharmacy 107.5 ml/min; Est GFR (African American) 108.9 ml/min; Est GFR (Non-African American) 93.9 ml/min
[2022-09-21] MEDS ORDERED: POTASSIUM PHOS 3 MMOL/1 ML INFUSION IV STA (08:05)
[2022-09-21] MEDS ORDERED: POTASSIUM CHLORIDE CRTAB 20 MEQ TABCR PO STA ×2 (08:05→14:54)
[2022-09-21] MEDS ORDERED: MAGNESIUM SULFATE / D5W 1 GM/100 ML BAG IV SCH (08:15)
[2022-09-21] MEDS ORDERED: POTASSIUM PHOSPHATE 15 MMOL in SODIUM CHLORIDE 0.9% 250 ML IV ONE (08:15)
[2022-09-21] MEDS ORDERED: PHYTONADIONE 2.5 MG in DEXTROSE 5% 50 ML IV ONE (08:15)
[2022-09-21 09:28] LABS: Hematocrit (blood only) 22.8 % (42.0-52.0); Hemoglobin 8.1 g/dl (14.0-18.0); Mean Corpuscular Hemoglobin 32.7 pg (25.0-34.0); Mean Corpuscular Hgb Conc 35.5 g/dL (32.0-36.0); Mean Corpuscular Volume 91.9 fL (80.0-100.0); Platelet Count 294 K/uL (130-400); RDW Coefficient of Variation 15.8 % (11.5-14.5); RDW Standard Deviation 52.7 fL (36.4-46.3); Red Blood Count 2.48 M/uL (4.70-6.10); White Blood Count 15.78 K/ul (4.8-10.8)
--- NOTE | 2022-09-21 10:24 | Gastroenterology Progress Note ---
Date of Service September 21, 2022 Assessment & Plan (1) Painless jaundice: (2) Mass of pancreas: (3) Transaminitis: (4) Liver lesion: Plan: Patient is a 62 years old male who presented with painless jaundice, found to have elevated LFTs, and abdominal imaging studies concerning for pancreatic head mass suspicious for adenocarcinoma, with also several liver lesions concerning for possible metastatic processes. Febrile episodes overnight but he remains asymptomatic for abdominal pain, nausea or vomiting otherwise. He is currently on Zosyn IV - F/U Ca 19-9 - Correct electrolytes (Na, K) - Vit K 5mg IV x 1 , monitor INR - Trend LFTs - NPO after midnight for EUS/ERCP by Dr. Jean-Claude Corral on 09/22/2022 - Discussed with hospitalist re: goal for electrolyte repletion and repeating BMP later today. If not improved, will plan for transfer to tertiary care center with IR support for percutaneous drain placement. - Oncology consulted Admission and Anticipated Discharge Date Admission Date: September 19, 2022 Supervising Physician Co-Signing Physician Notes 62 y/o M who presented with painless jaundice that he noticed over the past couple weeks. Family and co-workers noticed he had turned yellow a couple weeks ago and family had been urging him to come to the hospital. He states he is otherwise feeling well and had no other symptoms including weight loss, abdominal pain, N/V, fevers, chills, diarrhea, signs of GI bleeding. On admission he had a CT scan found to have a pancreatic head mass causing biliary obstruction nad partially encasing the SMA with concern for metastatic liver lesions. WBC 17k, total bili 35, AST 147, ALT 145, ALP, K 2.7, Na 125. On exam patient is diffusely jaundiced with scleral icterus and abdomen is soft and non- tender to palpation. Will plan for EUS/ERCP tomorrow if lab abnormalities are corrected. Would give IV vitamin K until Sunday given elevated INR. Daily CBC and CMP. Check CA 19-9 levels. NPO at midnight tonight. Cover with IV abx for cholangitis given leukocytosis though my suspicion for this is very low as he is afebrile without abd pain and clinically doing well. If he were to decompensate before Friday 09/22 would recommend transfer to tertiary care center for a percutaneous drain placement. Mable Molina, DO Gastroenterology and Hepatology Subjective Pt had large BM wo rectal bleeding or dark tarry stools this morning. He denies any abdominal pain, nausea or vomiting Review of Systems Review of Systems: All systems reviewed & are unremarkable except as noted in HPI & below Physical Exam Constitutional: WD/WN, vitals as above well groomed, cooperative and comfortable Eyes: EOMs intact, icteric sclera ENMT: external ear and nose normal, oropharynx normal Respiratory: normal respiratory effort, lungs clear to auscultation Cardiovascular: RRR, no murmur, no edema Gastrointestinal (Abdomen): normal bowel sounds, soft, nontender, no hepatosplenomegaly Skin: + jaundice Psychiatric: A+Ox3, euthymic affect Lymphatic: no lymphedema Results & Data ([facility]) Vital Signs (Past 12 Hours) Vital Signs Temp Pulse Pulse Resp BP Pulse Ox O2 Del Method 09/21/22 10:07 36.8 C 77 17 114/74 100 Room Air 09/21/22 09:32 76 16 113/70 99 Room Air 09/21/22 09:19 36.8 C 75 16 114/75 99 Room Air 09/21/22 09:00 77 16 116/76 97 Room Air 09/21/22 07:57 36.4 C L 71 17 112/71 98 Room Air 09/21/22 00:25 37.3 C 90 18 125/74 96 Room Air 09/20/22 23:20 38.3 C H 99 H 16 118/72 95 Room Air 09/20/22 22:27 39.1 C H 101 H 18 116/71 96 Room Air
--- NOTE | 2022-09-21 10:44 | Medical Student Progress Note ---
Date of Service September 21, 2022 Assessment & Plan (1) Painless jaundice: Plan: 62-year-old male presented to the ED with 2 weeks of painless jaundice found to have LFTs consistent with both obstructive and hepatocellular pattern and imaging findings suggestive of large pancreatic head mass with evidence of metastatic disease to liver. Painless jaundice likely 2/2 Pancreatic Malignancy -CA 19-9 pending -GI consultation appreciated -Correct electrolytes (Na, K) -INR of 2.0 on admission (09/19), INR of 1.5 today (09/21) -Vit K 5mg IV x 1, monitor INR -AST of 86, ALT of 107, Alk Phos of 289, Total Bilirubin of 34.6 w/ direct hyperbilirubinemia, albumin of 2.3 -Trend LFTs -NPO after midnight on 09/22 -Plan for EUS/ERCP by Dr. Jean-Claude Corral on 09/22 -Currently on Zosyn to cover for possible cholangitis -Consider transfer to tertiary care center with IR support for percutaneous drain placement if decompensated due to biliary obstruction and not optimized for EUS/ERCP -Oncology consulted -Patient's diet advanced for now (2) Mass of pancreas: Plan: -Abdominal US and Abdomen/Pelvic CT showed large pancreatic head mass with evidence of metastatic disease to liver -CA 19-9 pending -GI and oncology consultations appreciated -Trend LFTs -Pending EUS/ERCP by Dr. Jean-Claude Corral on 09/22 (3) Electrolyte disturbance: Plan: -K and Mg received yesterday -K 2.7 on admission (09/19), K 3.0 today (09/21) -Mg 2.4 yesterday (09/20), Mg 2.5 today (09/21) -Phosphorus of 2.0 today (09/21) -Corrected Ca today of 8.46 (mildly low) -Replete K, Mg, and phosphorus as needed (4) Gait instability: Plan: -Patient reports approximately 1 week of gait instability. -He does have significant history of frequent alcohol use. -Last drink 9 days ago most likely out of window for acute withdrawal. -B12 >1500 and Folate 11.29 -Continue high-dose thiamine 500 mg IV for now -PT/OT ordered (5) Anemia: Plan: -Presented with hgb of 8.1, normocytic MCV of 91.9, and elevated RDW of 52.7 -Mildly low serum iron of 31, ferritin pending (6) Leukocytosis: Plan: -WBC of of 15.78 on admission with neutrophilic dominance -Differential between reactive secondary to hepatic outflow obstruction vs infectious -Fevers overnight, currently afebrile with temp of 37.1 -Continue Zosyn Plan F/E/N - Regular diet, no IVF, NPO midnight 09/22 for EUS/ERCP ProphylaxisLovenox, patient at high risk for DVT given suspected pancreatic cancer Codefull per discussion with patient Dispositionadmitted to medical Admission and Anticipated Discharge Date Admission Date: September 19, 2022 Supervising Attestation I saw and examined patient. I agree with the assessment and plan as documented by the medical delivery technician/medical student with any additional comments as below patient has pancreatic head mass with probable mets to liver. CT head unremarkable. At this time we are consulting hematology/oncology and gastroenterology. Plan for ERCP on Sunday as long as electrolytes are corrected appropriately. Continue to monitor his CMP and CBC to ensure he does not develop cholangitis. Patient is not interested at this time on transfer to tertiary care facility but certainly we understand that this may be necessary if patient is unable to undergo an ERCP and would need a percutaneous drain placement. We will continue to monitor him For his potassium, we will replete as needed and also correct hyponatremia with normal saline; we did obtain urine studies which show no signs of SIADH Subjective 62-year-old male presented to the ED with 2 weeks of painless jaundice found to have LFTs consistent with both obstructive and hepatocellular pattern and imaging findings suggestive of large pancreatic head mass with evidence of metastatic disease to liver. Today pt has no new concerns. Pt states he is motivated to beat this. Pt has no interest in drinking alcohol again. Pt understands the plan to be NPO at nv dnight pending ERCP tomorrow. Review of Systems Respiratory: no dyspnea Cardiovascular: no chest pain Gastrointestinal: no abdominal pain, no constipation and no diarrhea/loose stools Bowel movement this morning Neurologic: no numbness and no paresthesia Psychiatric: no visual hallucinations Physical Exam Eyes: Scleral icterus Respiratory: normal respiratory effort, lungs clear to auscultation Gastrointestinal (Abdomen): Mild hepatomegaly on palpation. No pain with palpation. Normal bowel sounds. Skin: Diffusely jaundiced Neurologic: patellar DTR's 2+ bilat, sensation intact Psychiatric: Orientation: alert and cooperative Affect: euthymic affect Results & Data ([facility]) Vital Signs (Past 12 Hours) Vital Signs Temp Pulse Pulse Resp BP Pulse Ox O2 Del Method 09/21/22 10:07 36.8 C 77 17 114/74 100 Room Air 09/21/22 09:32 76 16 113/70 99 Room Air 09/21/22 09:19 36.8 C 75 16 114/75 99 Room Air 09/21/22 09:00 77 16 116/76 97 Room Air 09/21/22 07:57 36.4 C L 71 17 112/71 98 Room Air 09/21/22 00:25 37.3 C 90 18 125/74 96 Room Air 09/20/22 23:20 38.3 C H 99 H 16 118/72 95 Room Air 09/20/22 22:27 39.1 C H 101 H 18 116/71 96 Room Air
[2022-09-21 12:47] LABS: Basophils # (auto) 0.03 K/uL (0-0.2); Basophils % (auto) 0.2 %; Eosinophils # (auto) 0.03 K/uL (0-0.50); Eosinophils % (auto) 0.2 %; Immature Granulocytes # (auto) 0.33 K/uL (0.01-0.20); Immature Granulocytes % (auto) 2.1 %; Lymphocytes # (auto) 0.27 K/uL (1.2-3.4); Lymphocytes % (auto) 1.7 %; Monocytes # (auto) 0.52 K/uL (0.11-0.59); Monocytes % (auto) 3.3 %; Neutrophils % (auto) 92.5 %; Polychromasia 1+; Target Cells 1+
[2022-09-21 14:38] LABS: Albumin Level 2.3 gm/dl (3.4-5.0); Calcium 7.1 mg/dl (8.5-10.1); Globulin 2.2 gm/dl (2.5-4.0); Total Protein 4.5 gm/dl (6.0-8.3)
[2022-09-21 14:40] LABS: BUN Creatinine Ratio 13.3 (10-20); Creatinine Clr Calc Pharmacy 104.9 ml/min; Est GFR (African American) 107.8 ml/min
[2022-09-21 14:41] LABS: Bilirubin,Total 34.6 mg/dl (0.2-1.0)
[2022-09-21] MEDS: SODIUM CHLORIDE 0.9% 500 ML IV SCH ×3 (15:34→23:35)
[2022-09-21 20:50] LABS: INR 1.5 (0.9-1.1); Prothrombin Time 15.4 Seconds (9.0-12.0)
[2022-09-21 22:15] LABS: Anion Gap 7 (3-11); Calcium 6.6 mg/dl (8.5-10.1); Carbon Dioxide 19 mmol/L (21-32); Chloride 98 mmol/L (98-107); Glucose 139 mg/dl (70-99(Fasting)); Potassium 3.6 mmol/L (3.5-5.1); Sodium 124 mmol/L (136-145)
[2022-09-21] MEDS ORDERED: FUROSEMIDE 40 MG/4 ML VIAL IV ONE (22:53)
[2022-09-22] MEDS: THIAMINE HCL 500 MG in SODIUM CHLORIDE 0.9% 50 ML IV SCH ×3 (01:36→17:36)
[2022-09-22] MEDS ORDERED: STAT IV STA (06:50)
[2022-09-22] MEDS ORDERED: CALCIUM GLUCONATE 10% 1,000 MG in DEXTROSE 5% 50 ML IV ONE (06:50)
--- NOTE | 2022-09-22 07:32 | Hospitalist Progress Note ---
Date of Service September 22, 2022 Assessment & Plan (1) Painless jaundice: (2) Mass of pancreas: (3) Gait instability: Plan 62-year-old male presenting with 2 weeks of painless jaundice. Liver studies significant for obstructive as well as hepatocellular pattern with marked elevation of total bilirubin = 35, AST = 147, ALT = 145. Imaging findings as above with large pancreatic head mass concerning for malignancy as well as evidence of metastatic disease to liver. Patient and family made aware of these findings. Patient reports that he is "not giving up". Patient and family request that all news be shared with patient in the presence of family. Painless jaundice likely 2/2 Pancreatic Malignancy CA 19-9 [id number] (elevated) GI consultation appreciated * EGD/ERCP/EUS performed today, biopsies obtained, results above - Oncology consulted * Recommending CT Chest for staging, anemia workup, and Mediport if bx confirms pancreatic cancer * Recommending outpatient genetic testing and eventual palliative care consultation of confirmed pancreatic cancer --- Hyponatremia, suspected 2/2 hypervolemia, improving w/ Lasix, currently 130 --- Hypokalemia, improving w/ supplementation --- Hypocalcemic, received Calcium gluconate Mass of pancreas: - As above, most highly concerning for pancreatic malignancy. CA 19-9 ordered GI and oncology consultations appreciated --- Transaminitis stable --- EUS/ERCP as above, pending tissue diagnosis Gait instability: - Patient reports approximately 1 week of gait instability. - He does have significant history of frequent alcohol use. Last drink 9 days ago most likely out of window for acute withdrawal. We will check B12 and folate level with a.m. labs High-dose thiamine 500 mg IV for now --- PT/OT ordered F/E/N - Regular diet, no IVF ProphylaxisLovenox, patient at high risk for DVT given suspected pancreatic cancer Codefull per discussion with patient Dispositionadmit to medical Admission and Anticipated Discharge Date Admission Date: September 19, 2022 Supervising Physician Co-Signing Physician Notes 62-year-old male with no significant past medical history presenting with painless jaundice in setting of pancreatic mass. CA 19-9 significantly elevated. ERCP/EUS/EGD today with biopsies obtained with concern of multiple hepatic metastatic lesions and concerning lymphadenopathy with stent placed in common bile duct. Examined patient at bedside with resident. Discussion with patient's son Eliezer on the importance of family support when updating patient with prognosis and recommendations on next steps. Agree with documented history, physical exam, and plan. Subjective Rik is in good spirits today and has no acute concerns, he was resting comfortably in his bed upon arrival and noted that he was hungry. He denies any CP, dyspnea or pleuritic pain. He is not experiencing any abdominal pain or bloating. Family was at bedside and all questions were answered. Review of Systems Review of Systems: As per HPI Physical Exam Physical Exam: General: patient resting comfortably, NAD, non-toxic in appearance, AA&O x 4 Skin: warm, dry, intact, + jaundice HEENT: NC/AT, + icteric sclera, dry mucous membranes, jaundice of oral mucosa, no JVD Heart: RRR, normal S1/S2, no MRG Lungs: CTAB, no rales/rhonchi/wheezes Abd: +BS, soft w/o distension, no TTP or palpable masses Ext: warm, 2+ pulses in UE/LE bilaterally, trace pitting edema bilateral lower extremity Results & Data Results & Data ([facility]) Vital Signs (Past 12 Hours) Vital Signs Temp Pulse Resp BP Pulse Ox O2 Del Method 09/21/22 21:44 37.3 C 85 16 116/71 97 Room Air Diagnostic Findings EUS Impression 09/22/22: - Multiple metastatic lesions were found in the visualized portion of the liver. Fine needle aspiration performed. - There was dilation in the common bile duct which measured up to 10 mm. - Hyperechoic material consistent with sludge was visualized endosonographically in the gallbladder. - A mass was identified in the pancreatic head. This was staged T4 N1 M1 (based on metastasis to liver and pending cytologic confirmation) by endosonographic criteria. The staging applies if malignancy is confirmed. - A few malignant-appearing lymph nodes were visualized in the celiac region (level 20). - Endosonographic images of the left adrenal gland were unremarkable. Endo Retro Cholangiopancreatogram 09/22/22 [place] ERCP biliary ductal FINDINGS: The ampulla was cannulated and contrast was injected into the common bile duct. There is a tight/severe stricture at the distal common bile duct. A common bile duct stent was placed and appears in good position. IMPRESSION: Fluoroscopic assistance as described above. 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
[2022-09-22 07:53] LABS: Hematocrit (blood only) 23.3 % (42.0-52.0); Hemoglobin 8.4 g/dl (14.0-18.0); Mean Corpuscular Hemoglobin 32.6 pg (25.0-34.0); Mean Corpuscular Hgb Conc 36.1 g/dL (32.0-36.0); Mean Corpuscular Volume 90.3 fL (80.0-100.0); Mean Platelet Volume 8.7 fL (9.4-12.4); Platelet Count 327 K/uL (130-400); RDW Coefficient of Variation 15.6 % (11.5-14.5); Red Blood Count 2.58 M/uL (4.70-6.10)
[2022-09-22] MEDS: PIPERACILLIN/TAZOBACTAM 3.375 GM in DEXTROSE 5% 100 ML IV SCH ×2 (08:01→15:53)
[2022-09-22 08:20] LABS: Anion Gap 6 (3-11); Calcium 7.6 mg/dl (8.5-10.1); Carbon Dioxide 23 mmol/L (21-32); Chloride 99 mmol/L (98-107); Potassium 2.9 mmol/L (3.5-5.1); Sodium 128 mmol/L (136-145)
[2022-09-22 08:23] LABS: Basophils # (auto) 0.05 K/uL (0-0.2); Basophils % (auto) 0.3 %; Eosinophils # (auto) 0.08 K/uL (0-0.50); Eosinophils % (auto) 0.5 %; Immature Granulocytes # (auto) 0.29 K/uL (0.01-0.20); Immature Granulocytes % (auto) 1.7 %; Lymphocytes # (auto) 0.25 K/uL (1.2-3.4); Lymphocytes % (auto) 1.5 %; Monocytes # (auto) 0.54 K/uL (0.11-0.59); Monocytes % (auto) 3.2 %; Neutrophils # (auto) 15.89 K/uL (1.40-6.50); Neutrophils % (auto) 92.8 %; Polychromasia 1+; Target Cells 1+; Toxic Granulation 1+; Toxic Vacuolation 1+
[2022-09-22] MEDS ORDERED: INDOMETHACIN 50 MG SUPP PR ONE ×2 (08:30→09:20)
[2022-09-22 08:37] LABS: INR 1.4 (0.9-1.1)
[2022-09-22] MEDS ORDERED: FUROSEMIDE 40 MG/4 ML VIAL IV ONE (08:48)
[2022-09-22] MEDS ORDERED: fentaNYL citrate 100 MCG/2 ML VIAL ONE (08:53)
[2022-09-22] MEDS ORDERED: MIDAZOLAM HCL 1 MG/ML 2ML VIAL ONE (08:54)
[2022-09-22] MEDS ORDERED: ONDANSETRON INJ 2 MG/ML 2 ML VIAL ONE (08:59)
[2022-09-22] MEDS ORDERED: LIDOCAINE 2% MPF LOCAL 5 ML VIAL INFIL ONE (08:59)
[2022-09-22] MEDS ORDERED: PROPOFOL IV EMULSION 10 MG/ML 20 ML VIAL IV ONE (08:59)
[2022-09-22] MEDS ORDERED: SUCCINYLCHOLINE CHLORIDE 20 MG/ML 10 ML VIAL IV ONE (08:59)
--- NOTE | 2022-09-22 09:10 | History & Physical Bridge Note ---
Date of Service September 22, 2022 History & Physical Bridge Note I have examined the patient, reviewed the History & Physical and in the interval since the performance of the History & Physical I have noted the following changes of clinical significance: no changes noted. The patient presented with obstructive jaundice and evidence of a pancreatic mass on imaging. We are planning to do EGD, EUS and ERCP today. I have discussed the risks and benefits of EGD, EUS and ERCP to include bleeding, infection, perforation, pain, pancreatitis, insufficient cellularity, inability to cannulate the bile duct and need for follow-up studies. CT 09/19/22 1. An ill-defined heterogeneous mass within the pancreatic head measuring approximately 3.9 cm. This appears to account for the biliary and pancreatic duct dilatation. Therefore, this is highly suspicious for a pancreatic adenocarcinoma. This may partially encase the traversing superior mesenteric artery and results in mild narrowing of the traversing superior mesenteric vein. 2. A few ill-defined hypodensities within the liver which are highly suspicious for metastatic disease. 3. A single mildly enlarged gastrohepatic lymph node. 4. Scattered tree-in-bud nodular airspace opacities within the lung bases favor a chronic infectious bronchiolitis.
--- NOTE | 2022-09-22 09:13 | Anesthesiology Consultation ---
Date of Service September 22, 2022 Assessment & Plan ASA ASA4 Proposed Anesthesia Anesthesia Type: General Risk / Benefits Reviewed With: PT / POA / Parent / Guardian, Accepts Plan and Informed Consent Obtained Additional Comments: pt with abnormal K and Na. pt is an urgent case. Pt would be transfered to another facility if the stent cannot be done today. I d/w pt and the overall risk of delaying is potentially worse then proceeding with abnormal labs. pt wishes to proceed History Surgery Operation Date: 09/22/22 09:25 Proposed Procedures p Endoscopic Retrograde Cholangiopancreatogram - Jean-Claude Corral DO s Endoscopic Ultrasonography Upper - Jean-Claude Corral DO Height/Weight Height: 5 ft 11 in Weight: 93.3 kg Allergies Allergy/AdvReac Type Severity Reaction Status Date / Time No Known Allergies Allergy Verified 09/20/22 11:19 Medications Home Medications Medication Instructions Recorded Confirmed Last Taken No Known Home Medications 09/19/22 09/19/22 Unknown Active Medications Generic Name Dose Route Start Last Admin Trade Name Freq PRN Reason Stop Dose Admin Acetaminophen 650 mg 09/20/22 01:47 09/20/22 22:30 Acetaminophen 325 Mg Tab PO 10/20/22 01:46 650 mg Q4H PRN Administration pain/fever Enoxaparin Sodium 40 mg 09/20/22 06:00 09/20/22 05:15 Enoxaparin Inj 40 Mg/0.4 Ml Syr SQ 10/20/22 05:59 40 mg Q24H CHELSI Administration Thiamine HCl 500 mg/ Sodium 55 mls @ 220 mls/hr 09/20/22 02:00 09/22/22 01:55 Chloride IV 10/20/22 01:59 Infused Q8H CHELSI Infusion Piperacillin Sod/Tazobactam 115 mls @ 28.75 mls/hr 09/21/22 00:00 09/22/22 08:01 Sod 3.375 gm/ Dextrose IV 10/01/22 00:00 28.8 mls/hr Q8H CHELSI Administration Protocol NPO Date Last Intake of Fluids: 09/21/22 Time Last Intake of Fluids: 23:59 Last Intake of Fluids Comment: only sips water with meds Date Last Intake of Solids: 09/21/22 Time Last Intake of Solids: 23:59 Past Medical History Medical History No significant past medical history Exercise / Class Metabolic Activity II 4-5 Yardwork/Stairs/Walk up hill Past Family History Family History Other Colorectal cancer Past Surgical History Surgical History No significant past surgical history Past Anesthesia History No Hx of Anesthesia Complications and No Family Hx of Anesthesia Complications History of PONV No Hx of PONV and No Hx of Motion Sickness Social History Smoking Status: Never smoker Do You Dip or Chew Tobacco: Yes Hx Alcohol Use: Yes Alcohol type: beer alcohol intake frequency: 3 or more drinks per day Alcohol Intake Frequency Comment: states he drinks 4-5 beers per day and up to 12 per day on the weekends Hx Substance Use: No Review of Systems denies fever/cough/ colds/ chest pain/ SOB/ MAEVE denies MAEVE Physical Exam Vital Signs Last Vital Signs Temp 36.7 C 09/22/22 07:40 Pulse 78 09/22/22 07:40 Resp 16 09/22/22 07:40 BP 126/77 09/22/22 07:40 Pulse Ox 99 09/22/22 07:40 O2 Del Method 09/22/22 07:40 Constitutional pt bright yellow ENMT Mouth: no TMJ abnormality and no dentition abnormality Thyromental Distance: > or= 3.5 Finger Breadths Mallampati Class: II Neck neck extension not limited Respiratory normal respiratory effort; no respiratory distress Auscultation: lungs clear to auscultation bilaterally Cardiovascular Rate/Rhythm: regular rate and regular rhythm Neurologic moves all extremities Psychiatric Orientation: alert and oriented x 3 Testing Laboratory Results 09/22/22 07:33 09/22/22 07:33 PT 15.0 Seconds (9.0-12.0) H 09/22/22 07:33 INR 1.4 (0.9-1.1) H 09/22/22 07:33 Hemoglobin A1c 4.6 % (4.5-5.6) 09/20/22 12:50 Urine Color Dark Yellow 09/19/22 22:32 Urine Appearance Clear (Clear) 09/19/22 22:32 Urine pH 6.5 (4.5-7.5) 09/19/22 22:32 Ur Specific [place] 1.010 (1.000-1.030) 09/19/22 22:32 Urine Protein Negative (Negative) 09/19/22 22:32 Urine Glucose (UA) Negative (Negative) 09/19/22 22:32 Urine Ketones Negative (Negative) 09/19/22 22:32 Urine Nitrite Positive (Negative) A 09/19/22 22:32 Ur Leukocyte Esterase Negative (Negative) 09/19/22 22:32 Urine WBC (Auto) 0 /hpf (0-5) 09/19/22 22:32 Urine RBC (Auto) 0-4 /hpf (0-4) 09/19/22 22:32 U Hyaline Cast (Auto) 0 /lpf (0-5) 09/19/22 22:32 U Epithel Cells (Auto) 0-5 /lpf (0-5) 09/19/22 22:32 Urine Bacteria (Auto) Negative (Negative) 09/19/22 22:32
--- NOTE | 2022-09-22 10:31 | Fluoroscopy Report ---
[place] ERCP biliary ductal CLINICAL HISTORY: ERCP IN OR. Pancreatic mass with bile duct dilatation. COMPARISON STUDY: Abdomen and pelvis CT 09/19/2022. FLUOROSCOPY TIME: 64 seconds FLUOROSCOPY IMAGES: 11 EXPOSURE DOSE: Not available. FINDINGS: The ampulla was cannulated and contrast was injected into the common bile duct. There is a tight/severe stricture at the distal common bile duct. A common bile duct stent was placed and appear s in good position. IMPRESSION: Fluoroscopic assistance as described above. ACT 112: Negative or not required by law. Electronically signed by: Timothy Alamo M.D. 09/22/2022 10:30 AM
--- NOTE | 2022-09-22 10:42 | Post Operative Brief Note ---
Immediate Post Op Note v1 Date of Surgery September 22, 2022 Pre & Post Diagnosis Operation Date: 09/22/22 09:25 Pre-Op Diagnosis: PAINLESS JAUNDICE Post-Op Diagnosis: Metastatic Pancreatic cancer Cholangitis I identified the patient and participated in the time-out.: Yes Procedure Operation Date: 09/22/22 09:25 Actual Procedures p EGD Biopsy Cytology - Jean-Claude Corral DO s Endoscopic Ultrasonography Upper with FNA Liver Bx left hepatic lobe - Jean-Claude Corral DO p Endoscopic Retrograde Cholangiopancreato with stent placement - Jean-Claude Corral DO Surgeon Jean-Claude Corral DO Cleaner Window none Estimated Blood Loss 0 Findings Consistent with Post-Op Diagnosis
--- NOTE | 2022-09-22 10:44 | Communication Note ---
Date of Service: September 22, 2022 The patient underwent upper endoscopy, endoscopic ultrasound and ERCP today. He was found to have evidence of a pancreatic mass with metastatic disease to his celiac nodes and liver. Fine-needle aspiration was obtained from the patient's or masses. Final results are pending. An ERCP was then performed notable for a stricture in the distal common bile duct, a stent was placed resulting in excellent biliary drainage with evidence of cholangitis. Recommendations Continue IV hydration Hold Nonsteroidals for 5 days please Antibiotic coverage for total of 2 weeks Clear liquid diet today Advance diet as tolerated on 09/23 Please call with any questions or concerns over the weekend
[2022-09-22] MEDS ORDERED: ATROPINE SULFATE 0.1 MG/ML 10ML SYR IV PRN (10:50)
[2022-09-22] MEDS ORDERED: ePHEDrine sulfate 50 MG/ML AMP IV PRN (10:50)
--- NOTE | 2022-09-22 10:51 | Anesthesiology Progress Note ---
Date of Service September 22, 2022 Anesthesia Post Procedure Vital Signs Vital Signs: Temp Pulse Pulse Pulse Resp BP Pulse Ox 09/22/22 10:50 70 16 109/74 100 09/22/22 10:40 72 16 116/72 100 09/22/22 10:31 36.3 C L 74 16 115/62 100 09/22/22 07:40 36.7 C 78 16 126/77 99 09/21/22 21:44 37.3 C 85 16 116/71 97 09/21/22 14:22 37.1 C 75 17 142/83 H 100 O2 Del Method O2 Flow Rate 09/22/22 10:50 Room Air 09/22/22 10:40 Oxymask 5 09/22/22 10:31 Oxymask 5 09/22/22 07:40 Room Air 09/21/22 21:44 Room Air 09/21/22 14:22 Room Air Transfer of Care Handoff Completed per policy Notes Mental Status: alert / awake / arousable and participated in evaluation Patient Amnestic to Procedure: Yes Nausea / Vomiting: adequately controlled Pain: adequately controlled Airway Patency, RR, SpO2: stable & adequate BP & HR: stable & adequate Hydration State: stable & adequate Anesthetic Complications: no major complications apparent and Pt Satisfied with anesthetic care
--- NOTE | 2022-09-22 11:52 | GI REPORT ---
Patient Name: Rik Kebede Procedure Date: 09/22/2022 9:41 AM Date of : 1960 Admit Type: Inpatient Age: 62 Gender: Male Attending MD: Jean-Claude Corral DO, Procedure: Upper EUS Providers: Jean-Claude Corral DO Referring MD: Rik Redding Indications: Suspected mass in liver on CT scan, Suspected mass in pancreas on CT scan Medicines: General Anesthesia Complications: No immediate complications. Estimated blood loss: Minimal. Estimated Blood Loss: Estimated blood loss was minimal. Procedure: Pre-Anesthesia Assessment: - Prior to the procedure, a History and Physical was performed, and patient medications, allergies and sensitivities were reviewed. The patient's tolerance of previous anesthesia was reviewed. - The risks and benefits of the procedure and the sedation options and risks were discussed with the patient. All questions were answered and informed consent was obtained. - Patient identification and proposed procedure were verified prior to the procedure by the physician, the nurse and the crime laboratory analyst. The procedure was verified in the procedure room. - Pre-procedure physical examination revealed no contraindications to sedation. - ASA Grade Assessment: IV - A patient with severe systemic disease that is a constant threat to life. - After reviewing the risks and benefits, the patient was deemed in satisfactory condition to undergo the procedure. - The anesthesia plan was to use general anesthesia. - Immediately prior to administration of medications, the patient was re-assessed for adequacy to receive sedatives. - The heart rate, respiratory rate, oxygen saturations, blood pressure, adequacy of pulmonary ventilation, and response to care were monitored throughout the procedure. - The physical status of the patient was re-assessed after the procedure. After obtaining informed consent, the endoscope was passed under direct vision. Throughout the procedure, the patient's blood pressure, pulse, and oxygen saturations were monitored continuously. The Endosonoscope was introduced through the mouth, and advanced to the third part of duodenum. The upper EUS was accomplished without difficulty. The patient tolerated the procedure well. Findings: ENDOSONOGRAPHIC FINDING: : Multiple round lesions were identified endosonographically in the visualized portion of the liver. The endosonographic appearance was suggestive of metastases. The lesions were hypoechoic. The largest lesion measured 8 mm by 8 mm in maximal cross-sectional diameter. The outer margins were smooth. Fine needle aspiration for cytology was performed. Color Doppler imaging was utilized prior to needle puncture to confirm a lack of significant vascular structures within the needle path. Four passes were made with the 25 gauge needle ([employer]) using a transgastric approach. A stylet was used. A residential director was present and performed a preliminary cytologic examination. Final cytology results are pending. There was dilation in the common bile duct which measured up to 10 mm. Intrahepatid ductal dilation Extensive hyperechoic material consistent with sludge was visualized endosonographically in the gallbladder. An irregular mass was identified in the pancreatic head. The mass was heterogenous. The mass measured 37 mm by 28 mm in maximal cross-sectional diameter. The endosonographic borders were poorly-defined. There was sonographic evidence suggesting invasion into the superior mesenteric artery (manifested by encasement), the portal vein (manifested by invasion) and the duodenum (manifested by intraluminal growth). An intact interface was seen between the mass and the adjacent structures suggesting a lack of invasion. The remainder of the pancreas was examined. The endosonographic appearance of parenchyma and the upstream pancreatic duct indicated duct dilation and parenchymal atrophy. A few malignant-appearing lymph nodes were visualized in the celiac region (level 20). The largest measured 13 mm by 10 mm in maximal cross-sectional diameter. The nodes were oval, hypoechoic and had well defined margins. There was no sign of significant endosonographic abnormality in the left adrenal gland. No adrenal gland enlargement was identified. Impression: - Multiple metastatic lesions were found in the visualized portion of the liver. Fine needle aspiration performed. - There was dilation in the common bile duct which measured up to 10 mm. - Hyperechoic material consistent with sludge was visualized endosonographically in the gallbladder. - A mass was identified in the pancreatic head. This was staged T4 N1 M1 (based on metastasis to liver and pending cytologic confirmation) by endosonographic criteria. The staging applies if malignancy is confirmed. - A few malignant-appearing lymph nodes were visualized in the celiac region (level 20). - Endosonographic images of the left adrenal gland were unremarkable. Recommendation: - Perform an ERCP today. - Await cytology results. Jean-Claude Corral D.O. Jean-Claude Corral DO 09/22/2022 11:52:28 AM This report has been signed electronically. Note Initiated On: 09/22/2022 9:41 AM Number of Addenda: 0 I attest to the content of the Intraoperative Record and orders documented therein, exceptions below {[id number]}
[2022-09-22 12:33] LABS: Alanine Aminotransferase 91 U/L (7-52); Aspartate Aminotransferase 78 U/L (13-39); Globulin 2.1 gm/dl (2.5-4.0); Glucose 128 mg/dl (70-99(Fasting)); Total Protein 4.1 gm/dl (6.0-8.3)
[2022-09-22 13:00] LABS: Anion Gap 5 (3-11); Calcium 7.4 mg/dl (8.5-10.1); Carbon Dioxide 27 mmol/L (21-32); Chloride 97 mmol/L (98-107); Potassium 3.4 mmol/L (3.5-5.1); Sodium 129 mmol/L (136-145)
[2022-09-22 13:47] LABS: Bilirubin Direct 15.7 mg/dl (0-0.2)
[2022-09-22 13:48] LABS: Glucose 113 mg/dl (70-99(Fasting))
--- NOTE | 2022-09-22 13:57 | GI REPORT ---
Patient Name: Rik Kebede Procedure Date: 09/22/2022 10:00 AM Date of : 1960 Admit Type: Inpatient Age: 62 Gender: Male Attending MD: Jean-Claude Corral DO, Procedure: ERCP Providers: Jean-Claude Corral DO Referring MD: Rik Redding Indications: Abnormal endoscopic ultrasound of the biliary system, Elevated liver enzymes, Malignant tumor of the head of pancreas Medicines: General Anesthesia Complications: No immediate complications. Estimated blood loss: Minimal. Estimated Blood Loss: Estimated blood loss was minimal. Procedure: Pre-Anesthesia Assessment: - Prior to the procedure, a History and Physical was performed, and patient medications, allergies and sensitivities were reviewed. The patient's tolerance of previous anesthesia was reviewed. - The risks and benefits of the procedure and the sedation options and risks were discussed with the patient. All questions were answered and informed consent was obtained. - Patient identification and proposed procedure were verified prior to the procedure by the physician, the nurse and the motor vehicle license clerk. The procedure was verified in the procedure room. - Pre-procedure physical examination revealed no contraindications to sedation. - ASA Grade Assessment: IV - A patient with severe systemic disease that is a constant threat to life. - After reviewing the risks and benefits, the patient was deemed in satisfactory condition to undergo the procedure. - The anesthesia plan was to use general anesthesia. - Immediately prior to administration of medications, the patient was re-assessed for adequacy to receive sedatives. - The heart rate, respiratory rate, oxygen saturations, blood pressure, adequacy of pulmonary ventilation, and response to care were monitored throughout the procedure. - The physical status of the patient was re-assessed after the procedure. After obtaining informed consent, the scope was passed under direct vision. Throughout the procedure, the patient's blood pressure, pulse, and oxygen saturations were monitored continuously. The Duodenoscope was introduced through the mouth, and advanced to the duodenum and used to inject contrast into the bile duct. The ERCP was accomplished without difficulty. The patient tolerated the procedure well. Findings: The resin coater film was normal. The esophagus was successfully intubated under direct vision without detailed examination of the pharynx, larynx, and associated structures, and upper GI tract. The upper GI tract was grossly normal. A large infiltrative mass was found at the major papilla. The bile duct was deeply cannulated with the short-nosed traction sphincterotome and guidewire. Contrast was injected. I personally interpreted the bile duct images. Contrast extended to the hepatic ducts. The lower third of the main bile duct contained a single segmental stenosis 30 mm in length. The middle third of the main bile duct, upper third of the main bile duct, common hepatic duct and hepatic duct bifurcation were moderately dilated and diffusely dilated, with a mass causing an obstruction. The largest diameter was 12 mm. Biliary sphincterotomy was made with a monofilament Fusion OMNI sphincterotome using ERBE electrocautery. The sphincterotomy oozed blood. One 10 Fr by 8 cm uncovered metal stent was placed 8 cm into the common bile duct (REF MARINA 10-1188, LOT [id number]). Bile and pus flowed through the stent. The stent was in good position. The endoscope was withdrawn from the patient. Impression: - The major papilla appeared to have a mass. - A single segmental biliary stricture was found in the lower third of the main bile duct. The stricture was malignant appearing. - A biliary sphincterotomy was performed. - One uncovered metal stent was placed into the common bile duct. Recommendation: - [facility]. - Clear liquid diet today. - Use broad spectrum antibiotics for 2 weeks. - Refer to an oncologist as previously scheduled. Jean-Claude Corral D.O. Jean-Claude Corral, 09/22/2022 1:56:50 PM This report has been signed electronically. Note Initiated On: 09/22/2022 10:00 AM Number of Addenda: 0 I attest to the content of the Intraoperative Record and orders documented therein, exceptions below {[id number]}
[2022-09-22 14:40] LABS: iSTAT Creatinine 0.6 mg/dl (0.6-1.3); iSTAT Hemoglobin 9.9 g/dl (14.0-18.0); iSTAT Ionized Calcium 1.03 mmol/l (1.12-1.32)
--- NOTE | 2022-09-22 15:03 | GI REPORT ---
Patient Name: Rik Kebede Procedure Date: 09/22/2022 2:59 PM Date of : 1960 Admit Type: Inpatient Age: 62 Gender: Male Attending MD: Jean-Claude Corral DO, Procedure: Upper GI endoscopy Providers: Jean-Claude Corral DO Referring MD: Rik Redding Indications: Epigastric abdominal pain Medicines: General Anesthesia Complications: No immediate complications. Estimated blood loss: Minimal. Estimated Blood Loss: Estimated blood loss was minimal. Procedure: Pre-Anesthesia Assessment: - Prior to the procedure, a History and Physical was performed, and patient medications, allergies and sensitivities were reviewed. The patient's tolerance of previous anesthesia was reviewed. - The risks and benefits of the procedure and the sedation options and risks were discussed with the patient. All questions were answered and informed consent was obtained. - Patient identification and proposed procedure were verified prior to the procedure by the physician, the nurse and the fourth hand. The procedure was verified in the procedure room. - Pre-procedure physical examination revealed no contraindications to sedation. - ASA Grade Assessment: IV - A patient with severe systemic disease that is a constant threat to life. - After reviewing the risks and benefits, the patient was deemed in satisfactory condition to undergo the procedure. - Immediately prior to administration of medications, the patient was re-assessed for adequacy to receive sedatives. - The anesthesia plan was to use general anesthesia. - The heart rate, respiratory rate, oxygen saturations, blood pressure, adequacy of pulmonary ventilation, and response to care were monitored throughout the procedure. - The physical status of the patient was re-assessed after the procedure. After obtaining informed consent, the endoscope was passed under direct vision. Throughout the procedure, the patient's blood pressure, pulse, and oxygen saturations were monitored continuously. The Endoscope was introduced through the mouth, and advanced to the third part of duodenum. The upper GI endoscopy was accomplished without difficulty. The patient tolerated the procedure well. Findings: LA Grade A (one or more mucosal breaks less than 5 mm, not extending between tops of 2 mucosal folds) esophagitis with no bleeding was found in the lower third of the esophagus. Diffuse mild inflammation characterized by congestion (edema), erythema and granularity was found in the entire examined stomach. The duodenal bulb was normal. A large frond-like/villous mass with no bleeding was found in the area of the papilla. Biopsies were taken with a cold forceps for histology. The pathology specimen was placed into Bottle A. Estimated blood loss was minimal. Impression: - LA Grade A reflux esophagitis with no bleeding. - Gastritis. - Normal duodenal bulb. 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 Biopsied. Recommendation: - Perform an upper endoscopic ultrasound (UEUS) today. - Await pathology results. Jean-Claude Corral D.O. Jean-Claude Corral, DO 09/22/2022 3:03:02 PM This report has been signed electronically. Note Initiated On: 09/22/2022 2:59 PM Number of Addenda: 0 I attest to the content of the Intraoperative Record and orders documented therein, exceptions below {[id number]}
[2022-09-23] MEDS: PIPERACILLIN/TAZOBACTAM 3.375 GM in DEXTROSE 5% 100 ML IV SCH ×4 (00:15→23:35)
[2022-09-23] MEDS: THIAMINE HCL 500 MG in SODIUM CHLORIDE 0.9% 50 ML IV SCH ×3 (02:31→17:27)
[2022-09-23 07:33] LABS: Hematocrit (blood only) 22.8 % (42.0-52.0); Hemoglobin 8.3 g/dl (14.0-18.0); Mean Corpuscular Hemoglobin 33.1 pg (25.0-34.0); Mean Corpuscular Hgb Conc 36.4 g/dL (32.0-36.0); Mean Corpuscular Volume 90.8 fL (80.0-100.0); Mean Platelet Volume 8.9 fL (9.4-12.4); Platelet Count 357 K/uL (130-400); RDW Coefficient of Variation 15.6 % (11.5-14.5); RDW Standard Deviation 51.4 fL (36.4-46.3); Red Blood Count 2.51 M/uL (4.70-6.10); White Blood Count 17.46 K/ul (4.8-10.8)
[2022-09-23 07:39] LABS: INR 1.3 (0.9-1.1); Prothrombin Time 13.6 Seconds (9.0-12.0)
--- NOTE | 2022-09-23 07:51 | Hospitalist Progress Note ---
Date of Service September 23, 2022 Assessment & Plan (1) Painless jaundice: (2) Mass of pancreas: (3) Gait instability: Plan 62-year-old male presenting with 2 weeks of painless jaundice. Liver studies significant for obstructive as well as hepatocellular pattern with marked elevation of total bilirubin = 35, AST = 147, ALT = 145. Imaging findings as above with large pancreatic head mass concerning for malignancy as well as evidence of metastatic disease to liver. Patient and family made aware of these findings. Patient reports that he is "not giving up". Patient and family request that all news be shared with patient in the presence of family. Painless jaundice likely 2/2 Pancreatic Malignancy CA [phone] (elevated) GI consultation appreciated * EGD/ERCP/EUS performed today, biopsies obtained, results above - Oncology consulted * Recommending CT Chest for staging, anemia workup, and Mediport if bx confirms pancreatic cancer * Recommending outpatient genetic testing and eventual palliative care consultation of confirmed pancreatic cancer --- Hyponatremia, suspected 2/2 hypervolemia, improving w/ Lasix, currently 130 --- Hypokalemia, improving w/ supplementation --- Hypocalcemic, received calcium gluconate Mass of pancreas: - As above, most highly concerning for pancreatic malignancy. CA 19-9 ordered GI and oncology consultations appreciated --- Transaminitis stable --- EUS/ERCP as above, pending tissue diagnosis --- Recommended to continue broad spectrum antibiotics outpatient for two weeks following discharge Gait instability: - Patient reports approximately 1 week of gait instability. - He does have significant history of frequent alcohol use. Last drink 9 days ago most likely out of window for acute withdrawal. We will check B12 and folate level with a.m. labs High-dose thiamine 500 mg IV for now --- PT/OT ordered, ambulating well today F/E/N - Regular diet, no IVF ProphylaxisLovenox, patient at high risk for DVT given suspected pancreatic cancer Code Full COde Disposition discharge to home Admission and Anticipated Discharge Date Admission Date: September 19, 2022 Supervising Physician Co-Signing Physician Notes 62-year-old male with no significant past medical history presenting with painless jaundice in setting of pancreatic mass. Patient feeling well and bilirubin levels improving. Patient tolerating PO well. Per GI recommendations, patient to continue broad spectrum antibiotics for 2 weeks following ERCP. Discussion with patient and his family today involved seeking specialist consultation for guidance of possible treatment when biopsies available. Advised focus on quality of life. Anticipate discharge home tomorrow. Examined patient independently, agree with documented history, physical exam, and plan of resident physician. Subjective 09/23: Patient was resting comfortably in his bedside chair this morning. He notes a continued appetite. He continues to denies any discomfort, he is anticipating going home tomorrow. Review of Systems Review of Systems: As per HPI Physical Exam Physical Exam: General: patient resting comfortably, NAD, non-toxic in appearance, AA&O x 4 Skin: warm, dry, intact, + jaundice HEENT: NC/AT, + icteric sclera, dry mucous membranes, jaundice of oral mucosa, no JVD Heart: RRR, normal S1/S2, no MRG Lungs: CTAB, no rales/rhonchi/wheezes Abd: +BS, soft w/o distension, no TTP or palpable masses Ext: warm, 2+ pulses in UE/LE bilaterally, trace pitting edema bilateral lower extremity Results & Data Results & Data ([facility]) Vital Signs (Past 12 Hours) Vital Signs Temp Pulse Resp BP Pulse Ox O2 Del Method 09/22/22 20:45 Room Air 09/22/22 22:55 37.2 C 75 18 119/70 98 Room Air Resident Activity Tracking Resident Involvement: Resident Care Provided Care Provided: Adult [facility]
[2022-09-23 07:56] LABS: Bilirubin Direct 8.4 mg/dl (0-0.2); Bilirubin,Total 16.1 mg/dl (0.2-1.0); Calcium 7.2 mg/dl (8.5-10.1); Potassium 3.2 mmol/L (3.5-5.1)
[2022-09-23 08:02] LABS: Albumin Globulin Ratio 0.9 (0.9-2); BUN Creatinine Ratio 14.3 (10-20); Creatinine Clr Calc Pharmacy 138.2 ml/min; Est GFR (African American) 120.7 ml/min; Est GFR (Non-African American) 104.1 ml/min; Globulin 2.2 gm/dl (2.5-4.0); Total Protein 4.2 gm/dl (6.0-8.3)
[2022-09-23 08:04] LABS: Basophils # (auto) 0.05 K/uL (0-0.2); Basophils % (auto) 0.3 %; Eosinophils # (auto) 0.18 K/uL (0-0.50); Immature Granulocytes # (auto) 0.31 K/uL (0.01-0.20); Immature Granulocytes % (auto) 1.8 %; Lymphocytes # (auto) 0.33 K/uL (1.2-3.4); Lymphocytes % (auto) 1.9 %; Monocytes # (auto) 0.56 K/uL (0.11-0.59); Monocytes % (auto) 3.2 %; Neutrophils # (auto) 16.03 K/uL (1.40-6.50); Neutrophils % (auto) 91.8 %; Polychromasia 1+; Target Cells 1+
[2022-09-23] MEDS ORDERED: POTASSIUM CHLORIDE CRTAB 20 MEQ TABCR PO STA (10:25)
[2022-09-23] MEDS ORDERED: FUROSEMIDE 40 MG/4 ML VIAL IV ONE (12:15)
[2022-09-23] MEDS: ACETAMINOPHEN 325 MG TAB PO PRN ×2 (17:41→21:49)
[2022-09-24] MEDS: THIAMINE HCL 500 MG in SODIUM CHLORIDE 0.9% 50 ML IV SCH ×2 (02:58→09:01)
[2022-09-24] MEDS: ACETAMINOPHEN 325 MG TAB PO PRN (03:31)
[2022-09-24 06:03] LABS: Hematocrit (blood only) 23.1 % (42.0-52.0); Hemoglobin 8.1 g/dl (14.0-18.0); Mean Corpuscular Hemoglobin 33.3 pg (25.0-34.0); Mean Corpuscular Hgb Conc 35.1 g/dL (32.0-36.0); Mean Corpuscular Volume 95.1 fL (80.0-100.0); Platelet Count 376 K/uL (130-400); RDW Coefficient of Variation 15.7 % (11.5-14.5); RDW Standard Deviation 54.4 fL (36.4-46.3); Red Blood Count 2.43 M/uL (4.70-6.10); White Blood Count 15.23 K/ul (4.8-10.8)
[2022-09-24 06:09] LABS: INR 1.2 (0.9-1.1)
[2022-09-24 06:20] LABS: Basophils # (auto) 0.05 K/uL (0-0.2); Basophils % (auto) 0.3 %; Eosinophils # (auto) 0.22 K/uL (0-0.50); Eosinophils % (auto) 1.4 %; Immature Granulocytes # (auto) 0.32 K/uL (0.01-0.20); Immature Granulocytes % (auto) 2.1 %; Lymphocytes # (auto) 0.35 K/uL (1.2-3.4); Lymphocytes % (auto) 2.3 %; Monocytes # (auto) 0.54 K/uL (0.11-0.59); Monocytes % (auto) 3.5 %; Neutrophils # (auto) 13.75 K/uL (1.40-6.50); Neutrophils % (auto) 90.4 %
[2022-09-24 06:43] LABS: Albumin Level 2.1 gm/dl (3.4-5.0); Bilirubin Direct 5.1 mg/dl (0-0.2); Bilirubin,Total 11.3 mg/dl (0.2-1.0); Calcium 6.9 mg/dl (8.5-10.1); Potassium 3.1 mmol/L (3.5-5.1)
[2022-09-24 06:49] LABS: BUN Creatinine Ratio 15.5 (10-20); Creatinine Clr Calc Pharmacy 150.1 ml/min; Est GFR (African American) 124.9 ml/min; Est GFR (Non-African American) 107.7 ml/min; Globulin 2.2 gm/dl (2.5-4.0); Total Protein 4.3 gm/dl (6.0-8.3)
[2022-09-24] MEDS ORDERED: POTASSIUM CHLORIDE CRTAB 20 MEQ TABCR PO STA (06:52)
[2022-09-24] MEDS: PIPERACILLIN/TAZOBACTAM 3.375 GM in DEXTROSE 5% 100 ML IV SCH (07:42)
--- NOTE | 2022-09-24 15:46 | Discharge Summary ---
Date of Service September 24, 2022 Admission HPI Per Admitting Provider Rik Kebede is a pleasant 62-year-old male with no significant past medical history presenting with painless jaundice. Patient first noticed intermittent yellowing of his skin and eyes around the end of July he reports his skin would become yellow in color and last for a day or so and then resolve. Over the last 2 weeks he has noted that the jaundice and icterus has been persistent. He has deep yellowing of the skin and eyes as well as tea colored urine. Patient was seen by his primary care physician and had blood work performed which showed elevation of his liver studies therefore he was sent to the ER. Patient reports unsteady gait over the last week. He denies falling. Also reports decreased appetite but increased thirst, sometimes drinking up to 3 gallons of water per day. He notes increased bulk to his stool and that they are proctor in color. Otherwise, patient also denies headache, visual changes, chest pain, shortness of breath. Denies abdominal pain, distention, bloating, nausea, vomiting. Denies weight loss. Patient shoes tobacco. Does drink regularly, reports 4-5 beers daily during the week and up to 12/day on weekends. No history of withdrawal. His last drink was 9 days ago. In the ER patient is afebrile, hemodynamically stable, no acute distress. Son and ex- are at bedside. ER course: Potassium 20 mEq IV, normal saline x1 .L Admission Exam Per Admitting Provider General: patient resting comfortably, NAD, non-toxic in appearance, AA&O x 4 Skin: warm, dry, intact, + jaundice, + bruising on right knee HEENT: NC/AT, PERRL, EOMI, + icteric sclera, conjunctiva without injection, external ear normal to inspection and nontender, nares patent, moist mucus membranes, dentition intact, no oropharyngeal lesions, jaundice of oral mucosa noted, neck supple, trachea midline, no LAD, no thyromegaly, no JVD Heart: +S1/S2, regular, no m/r/g Lungs: equal air entry bilaterally, no rales/rhonchi/wheezes Abd: +BS, soft, NT/ND, no masses/organomegaly/ascites Ext: warm, 2+ pulses in UE/LE bilaterally, no clubbing/cyanosis, 2+ pitting edema bilateral lower extremity Neuro: nonfocal, patient AA&O x 4, speech intact, no facial droop, moving all extremities on command with equal strength 5/5, no asterixis Principal Diagnosis Painless Jaundice Pancreatic Mass Discharge Exam General: patient resting comfortably, NAD, non-toxic in appearance, AA&O x 4 Skin: warm, dry, intact, + jaundice HEENT: NC/AT, + icteric sclera, dry mucous membranes, jaundice of oral mucosa, no JVD Heart: RRR, normal S1/S2, no MRG Lungs: CTAB, no rales/rhonchi/wheezes Abd: +BS, soft w/o distension, no TTP or palpable masses Ext: warm, 2+ pulses in UE/LE bilaterally, trace pitting edema bilateral lower extremity Discharge Data Allergies Allergy/AdvReac Type Severity Reaction Status Date / Time No Known Allergies Allergy Verified 09/20/22 11:19 Consultations 09/19/22 22:02 ED Decision to Admit Stat 09/20/22 01:47 Consult Gastroenterology Routine Consult Oncology Routine Procedures Performed Operation Date: 09/22/22 09:25 Actual Procedures s Endoscopic Ultrasonography Upper with FNA Liver Bx left hepatic lobe - Jean-Claude Corral, p Endoscopic Retrograde Cholangiopancreato with stent placement - Jean-Claude Corral, p EGD Biopsy Cytology - Jean-Claude Corral, DO Ordered Studies Laboratory Results WBC 15.23 K/ul (4.8-10.8) H 09/24/22 05:15 RBC 2.43 M/uL (4.70-6.10) L 09/24/22 05:15 Hgb 8.1 g/dl (14.0-18.0) L 09/24/22 05:15 POC Hgb 9.9 g/dl (14.0-18.0) L 09/22/22 14:10 Hct 23.1 % (42.0-52.0) L 09/24/22 05:15 POC Hct 29 % (42-52) L 09/22/22 14:10 MCV 95.1 fL (80.0-100.0) 09/24/22 05:15 MCH 33.3 pg (25.0-34.0) 09/24/22 05:15 MCHC 35.1 g/dL (32.0-36.0) 09/24/22 05:15 RDW Std Deviation 54.4 fL (36.4-46.3) H 09/24/22 05:15 RDW Coeff of Jael 15.7 % (11.5-14.5) H 09/24/22 05:15 Plt Count 376 K/uL (130-400) 09/24/22 05:15 MPV 9.0 fL (9.4-12.4) L 09/24/22 05:15 Immature Gran % (Auto) 2.1 % 09/24/22 05:15 Neut % (Auto) 90.4 % 09/24/22 05:15 Lymph % (Auto) 2.3 % 09/24/22 05:15 [place] % (Auto) 3.5 % 09/24/22 05:15 Eos % (Auto) 1.4 % 09/24/22 05:15 Baso % (Auto) 0.3 % 09/24/22 05:15 Neut # (Auto) 13.75 K/uL (1.40-6.50) H 09/24/22 05:15 Lymph # (Auto) 0.35 K/uL (1.2-3.4) L 09/24/22 05:15 [place] # (Auto) 0.54 K/uL (0.11-0.59) 09/24/22 05:15 Eos # (Auto) 0.22 K/uL (0-0.50) 09/24/22 05:15 Baso # (Auto) 0.05 K/uL (0-0.2) 09/24/22 05:15 Immature Gran # (Auto) 0.32 K/uL (0.01-0.20) H 09/24/22 05:15 Toxic Granulation 1+ 09/22/22 07:33 Toxic Vacuolation 1+ 09/22/22 07:33 Polychromasia 1+ 09/23/22 07:07 Target Cells 1+ 09/23/22 07:07 PT 13.0 Seconds (9.0-12.0) H 09/24/22 05:15 INR 1.2 (0.9-1.1) H 09/24/22 05:15 POC Sodium 130 mmol/L (135-144) L 09/22/22 14:10 Sodium 130 mmol/L (136-145) L 09/24/22 05:15 POC Potassium 3.0 mmol/L (3.3-5.0) L 09/22/22 14:10 Potassium 3.1 mmol/L (3.5-5.1) L 09/24/22 05:15 POC Chloride 96 mmol/L (101-112) L 09/22/22 14:10 Chloride 100 mmol/L (98-107) 09/24/22 05:15 Carbon Dioxide 24 mmol/L (21-32) 09/24/22 05:15 POC Total CO2 25 mmol/L (24-31) 09/22/22 14:10 Anion Gap 6 (3-11) 09/24/22 05:15 POC Anion Gap 13.0 mmol/L (16-25) L 09/22/22 14:10 POC BUN 10 mg/dl (7-18) 09/22/22 14:10 BUN 9 mg/dl (6-23) 09/24/22 05:15 Creatinine 0.58 mg/dl (0.6-1.4) L 09/24/22 05:15 POC Creatinine 0.6 mg/dl (0.6-1.3) 09/22/22 14:10 Est Cr Clr Drug Dosing 150.1 ml/min 09/24/22 05:15 Est GFR ( Amer) 124.9 ml/min 09/24/22 05:15 Est GFR (Non-Af Amer) 107.7 ml/min 09/24/22 05:15 BUN/Creatinine Ratio 15.5 (10-20) 09/24/22 05:15 Glucose 120 mg/dl (70-99(Fasting)) H 09/24/22 05:15 POC Glucose (other) 175 mg/dl (70-99) H 09/22/22 14:10 Estimat Average Glucose 85 mg/dl 09/20/22 12:50 Hemoglobin A1c 4.6 % (4.5-5.6) 09/20/22 12:50 Osmolality 267 mOsm/kg (280-300) L 09/21/22 15:52 Calcium 6.9 mg/dl (8.5-10.1) L 09/24/22 05:15 POC Ioniz Calcium [place] 1.03 mmol/l (1.12-1.32) L 09/22/22 14:10 Ionized Calcium 1.03 mmol/L (1.12-1.32) L 09/21/22 09:44 Phosphorus 2.0 mg/dl (2.5-4.9) L 09/21/22 06:59 Magnesium TNP 09/21/22 06:59 Iron 31 mcg/dl (35-175) L 09/21/22 13:48 Ferritin 1618.0 ng/ml (8-388) H 09/21/22 13:48 Total Bilirubin 11.3 mg/dl (0.2-1.0) H 09/24/22 05:15 Direct Bilirubin 5.1 mg/dl (0-0.2) H 09/24/22 05:15 AST 50 U/L (13-39) H 09/24/22 05:15 ALT 72 U/L (7-52) H 09/24/22 05:15 Alkaline Phosphatase 196 U/L (34-104) H 09/24/22 05:15 Ammonia 36.0 umol/L (18-72) 09/19/22 21:47 Troponin I High Sens 38.9 pg/ml (0-20) H 09/19/22 18:35 Total Protein 4.3 gm/dl (6.0-8.3) L 09/24/22 05:15 Albumin 2.1 gm/dl (3.4-5.0) L 09/24/22 05:15 Globulin 2.2 gm/dl (2.5-4.0) L 09/24/22 05:15 Albumin/Globulin Ratio 1.0 (0.9-2) 09/24/22 05:15 Lipase TNP 09/19/22 18:35 CA 19-9 Antigen 251068 U/mL (<34) H 09/20/22 12:50 Vitamin B12 > 1500 pg/ml (180-914) H 09/20/22 12:50 Folate 11.29 ng/ml (>5.38) 09/20/22 12:50 Urine Color Dark Yellow 09/19/22 22:32 Urine Appearance Clear (Clear) 09/19/22 22:32 Urine pH 6.5 (4.5-7.5) 09/19/22 22:32 Ur Specific [place] 1.010 (1.000-1.030) 09/19/22 22:32 Urine Protein Negative (Negative) 09/19/22 22:32 Urine Glucose (UA) Negative (Negative) 09/19/22 22:32 Urine Ketones Negative (Negative) 09/19/22 22:32 Urine Blood Negative (Negative) 09/19/22 22:32 Urine Nitrite Positive (Negative) A 09/19/22 22:32 Urine Bilirubin 3+ (Negative) H 09/19/22 22:32 Urine Urobilinogen Negative (Negative) 09/19/22 22:32 Ur Leukocyte Esterase Negative (Negative) 09/19/22 22:32 Urine WBC (Auto) 0 /hpf (0-5) 09/19/22 22:32 Urine RBC (Auto) 0-4 /hpf (0-4) 09/19/22 22:32 U Hyaline Cast (Auto) 0 /lpf (0-5) 09/19/22 22:32 U Epithel Cells (Auto) 0-5 /lpf (0-5) 09/19/22 22:32 Urine Bacteria (Auto) Negative (Negative) 09/19/22 22:32 Urine Osmolality 465 mOsm/kg (500-800) L 09/21/22 16:06 Ur Random Creatinine 74.0 mg/dl 09/21/22 16:06 Ur Random Sodium 23 mmol/L 09/21/22 16:06 SARS-CoV-2, RNA, NAAT NEGATIVE (NEGATIVE) 09/19/22 Unknown Impressions Abdomen Ultrasound 09/19/22 17:13 US abdomen limited CLINICAL HISTORY: Jaundice, outpt elev bilirubin TECHNIQUE: Multiple real-time sonographic images of the right upper quadrant were obtained. Comparison: None available at the time of this dictation. FINDINGS: Liver is heterogeneous and enlarged. Multiple hypoechoic areas are seen measuring up to 8.1 x 3.5 x 7.6 cm. No intrahepatic ductal dilatation is seen. The gallbladder is distended. There is a small amount of sludge. The gallbladder wall measures 2 mm. Trace pericholecystic fluid is seen. The common duct measures 2.5 cm in diameter at the level of the hepatic artery. Dilation of the intra and extrahepatic biliary ducts are noted. The pancreas is heterogeneous in the pancreatic duct is enlarged to 5 mm. There is an ill-defined pancreatic head lesion measuring approximately 3.5 x 3.5 x 3.3 cm. The right kidney shows normal echogenicity, cortical thickness and renal contour. The right kidney shows no evidence of hydronephrosis or mass. No ascites or free fluid is seen in Ambriz's pouch. IMPRESSION: Findings are concerning for pancreatic head malignancy with enlargement of the common bile duct and pancreatic duct. Hypoechoic lesions in the liver are nonspecific, however metastatic lesions of pancreatic cancer is the diagnosis of exclusion. ACT 112: Negative or not required by law. Electronically signed by: Jacek Rey M.D. 09/19/2022 9:07 PM Abdomen/Pelvis CT 09/19/22 21:[address] WITH IV CONTRAST CT DOSE: HISTORY: painless jaundice TECHNIQUE: Multiaxial CT images of the abdomen and pelvis were performed following the use of intravenous contrast. A dose lowering technique was utilized adhering to the principles of ALARA. COMPARISON STUDY: None. FINDINGS: Calcified mediastinal and hilar lymph nodes. Scattered tree-in-bud nodular opacities seen within the lung bases and a few scattered punctate calcified granulomas. This favors a chronic infectious bronchiolitis. No pneumoperitoneum. No pneumatosis. No suspicious lytic or blastic osseous lesions. The spleen, adrenal glands, and kidneys are unremarkable. No hydronephrosis. Normal caliber abdominal aorta. Single mildly enlarged gastrohepatic lymph node on image 146 measuring 14 mm. The bladder is decompressed by Beavers catheter. No pelvic free fluid. Colonic diverticulosis. No evidence for acute diverticulitis. Moderate fecal retention is noted. No dilated loops of bowel to suggest an obstruction. There are severe intra and extrahepatic bile duct dilatation to the level of the distal common bile duct. The gallbladder is also severely distended. The main pancreatic duct is mildly distended. There is an ill-defined hypodense mass at the pancreatic head which measures approximately 3.9 cm best seen image 215. Therefore, these findings are highly suspicious for a pancreatic adenocarcinoma. There are few ill-defined hypodensities within the liver with the largest in the right hepatic lobe measuring 4.2 cm. These likely represent metastatic disease. The superior m esenteric artery is patent. The pancreatic mass appears to abut and may partially encase the superior mesenteric artery best seen on image 220. There is mild narrowing of approximately 20% within the proximal superior mesenteric vein on image 220. The splenic vein is patent. IMPRESSION: 1. An ill-defined heterogeneous mass within the pancreatic head measuring approximately 3.9 cm. This appears to account for the biliary and pancreatic duct dilatation. Therefore, this is highly suspicious for a pancreatic adenocarcinoma. This may partially encase the traversing superior mesenteric artery and results in mild narrowing of the traversing superior mesenteric vein. 2. A few ill-defined hypodensities within the liver which are highly suspicious for metastatic disease. 3. A single mildly enlarged gastrohepatic lymph node. 4. Scattered tree-in-bud nodular airspace opacities within the lung bases favor a chronic infectious bronchiolitis. ACT 112: Negative or not required by law. Electronically signed by: Timothy Alamo M.D. 09/20/2022 8:[address] 09/19/22 21:45 CT OF THE HEAD WITHOUT CONTRAST CLINICAL HISTORY: gait instability COMPARISON STUDY: No previous studies for comparison. CT DOSE: 1171.59 mGy.cm TECHNIQUE: Helical axial images of the head were obtained without IV contrast. Automated exposure control was utilized for the study. A dose lowering technique was utilized adhering to the principles of ALARA. FINDINGS: No acute intracranial hemorrhage, midline shift or mass effect is present. The ventricular system is unremarkable. The basal cisterns are patent. No extra-axial collections are present. There are no findings to suggest acute dural sinus thrombosis or acute territorial infarct. No significant calvarial abnormalities are present. There is mild sinus mucosal thickening. IMPRESSION: No acute intracranial findings. ACT 112: Negative or not required by law. Electronically signed by: Ted Dobson M.D. 09/20/2022 7:47 AM Endo Retro Cholangiopancreatogram 09/22/22 10:35 [place] ERCP biliary ductal CLINICAL HISTORY: ERCP IN OR. Pancreatic mass with bile duct dilatation. COMPARISON STUDY: Abdomen and pelvis CT 09/19/2022. FLUOROSCOPY TIME: 64 seconds FLUOROSCOPY IMAGES: 11 EXPOSURE DOSE: Not available. FINDINGS: The ampulla was cannulated and contrast was injected into the common bile duct. There is a tight/severe stricture at the distal common bile duct. A common bile duct stent was placed and appears in good position. IMPRESSION: Fluoroscopic assistance as described above. ACT 112: Negative or not required by law. Electronically signed by: Timothy Alamo M.D. 09/22/2022 10:30 AM Hospital Course (1) Painless jaundice: (2) Mass of pancreas: (3) Gait instability: Plan 62-year-old male presenting with 2 weeks of painless jaundice. Liver studies significant for obstructive as well as hepatocellular pattern with marked elevation of total bilirubin = 35, AST = 147, ALT = 145. Imaging findings as above with large pancreatic head mass concerning for malignancy as well as evidence of metastatic disease to liver. Patient and family made aware of these findings. Patient reports that he is "not giving up". Patient and family request that all news be shared with patient in the presence of family. Painless jaundice likely 2/2 Pancreatic Malignancy CA 19-9 [id number] (elevated) GI consultation appreciated * EGD/ERCP/EUS performed today, biopsies obtained, results above - Oncology consulted * Recommending CT Chest for staging, anemia workup, and Mediport if bx confirms pancreatic cancer * Recommending outpatient genetic testing and eventual palliative care consultation of confirmed pancreatic cancer - Ongoing electrolyte imbalances: Hyponatremia (130), Hypokalemia (3.1, repleted prior to dc) --- Recommend close monitoring of patient's CMP and CBC outpatient. Hyponatremia suspected to be secondary to hypervolemia, patient's hyponatremia worsened in the setting of IVF and improved in the setting of diuresis. Patient was sent home with Lasix 20 mg PO daily, he was advised to take the medication if he noticed swelling in his LE. Lasix has been successful at maintaining Na level of 130 while inpatient. Patient may require potassium supplementation as an outpatient, repletion was provided inpatient, recommending continued follow up. Mass of pancreas: - As above, most highly concerning for pancreatic malignancy. CA 19-9 ordered GI and oncology consultations appreciated - Transaminitis stable - EUS/ERCP as above, pending tissue diagnosis --- Recommended to continue broad spectrum antibiotics outpatient for 9 days following discharge, patient received 5 days of Piperacillin/Tazobactam during admission and was transitioned to Ciprofloxacin/Flagyl at discharge. This was recommended by gastroenterology as GI prophylaxis following his diagnostic procedures. Patient remained afebrile w/o leukocytosis during admission. Encouraged probiotics during antibiotic course for protection against C. diff. Gait instability: - Patient reports approximately 1 week of gait instability. - He does have significant history of frequent alcohol use. Last drink 9 days ago most likely out of window for acute withdrawal. We will check B12 and folate level with a.m. labs High-dose thiamine 500 mg IV for now --- PT/OT evaluated, patient strength and ambulation improving. Patient interested in continuing home exercise regimen. Discussed in depth with patient, endorsed benefit of weight bearing exercise and outdoor walks when able. Advised patient to listen to his body. Provided perspective that there will be days in the future where is strength will be low, and on those days he shouldn't hesitate to rest. F/E/N - Regular diet, no IVF ProphylaxisLovenox inpatient, patient at high risk for DVT given suspected pancreatic cancer Code Full Code Disposition Discharge to home w/ close follow-up to PCP, GI, and Onc Total Time Total Time Spent Total Time Spent (In Minutes): 25 min at bedside, 10 min chart review and documentation Discharge Plan Discharge Items Patient Disposition: Home - Self-Care Reason For Visit: PAINLESS JAUNDICE Discharge Diagnosis: Pancreatic Mass Painless Jaundice Activity: Per Instructions section Non-emergency contact: Primary Care Provider Call non-emergency contact if: you have any medication questions, your symptoms worsen, your pain is not controlled, your pain is unusual for you and your temperature is above 101.5 Follow-up/Referrals: Rik Redding [Primary Care Provider] - Diet: Regular Addtl Attending Provider Instructions: You were admitted to the hospital after an episode of Jaundice (yellowing of the skin). You were evaluated and found to have a mass in your pancreas w/ associated lesions present in your liver, small intestine, and lymph nodes. While you were here in the hospital, you received an EGD (to look at your stomach/intestine) and EUS/ERCP (to look at your liver, bile ducts, pancreas and lymph nodes). Biopsies of the masses were taken and have not yet resulted, you will be informed when they result. Moving forward, there will be follow up appointments scheduled with Gastroenterology and Oncology. They will discuss the results of your biopsies with you and continue to provide you with treatment options moving forward. As we discussed, it is important to also discuss your diagnosis with your Primary Care Doctor, I will call him on Sunday to discuss what we know so far, but I encourage you to see him within the next 3-5 days. He will be an excellent resource and support for you moving forward. At the recommendation of Gastroenterology, I will be discharging you with 9 days of antibiotics. Please take Ciprofloxacin 500 mg twice daily for 9 days as well as Flagyl 500 mg three times daily for 9 days. As we discussed while in the hospital, I encourage you to take probiotics while you are on antibiotics, these include yogurt/kefir/kombucha/kraut etc. You could also suplement with Align or Floragen probiotics. We also discussed physical activity and how it is important to listen to your body, I encourage you to do weight bearing exercises and walking as tolerated, but note that there will be days where you feel more fatigued than others and this is a sign to rest. You may continue to take your multivitamin. I will send you a short course of oral diuretics (Lasix), you may use this as needed for swelling in your legs. A discharge summary will be sent to your primary care physician to ensure continuity of care. Please bring this discharge summary with you to your next office appointment so that your provider can review it at that time. Follow-up appointments: - Primary Care Provider - 3-5 days, anticipate follow up labs to monitor CBC and CMP - Oncology - [facility] will assist in scheduling - Gastroenterology - [facility] will assist in scheduling appointment Medications: - If you have any issues filling these prescriptions, please call [phone] and ask to leave a message for Dr. Franz. - Take your medications as instructed; do not skip a dose of your medicines. Make sure all of your doctors know every medicine you are taking (including ggje-kpb-paxkxni medicines, vitamins, and supplements). - Call your primary care provider before taking any new medicines (including over- the-counter medicines, vitamins, and supplements), because some of these may interact with your current medications, or may make your symptoms worse. Contact your Primary Care Provider if you experience: - Fever - Abdominal discomfort - Difficulty following your treatment plan or taking medications Call 911 or go to the emergency department if you experience: - Sudden, severe abdominal pain or nausea/vomiting - Severe chest pain, or chest pain that radiates (moves) to your jaw or arm - Sudden, severe shortness of breath or difficulty breathing It was a pleasure to be a part of your care, Dr. Jesse Franz Pending Studies at Discharge: Yes Studies:: Tissue Biopsies Stand-Alone Forms: My [facility] [employer], Smoking Cessation Medications and DC Order Prescriptions: New ciprofloxacin HCl 500 mg tablet 500 mg PO Q12H 9 Days Qty: 18 0RF metronidazole 500 mg tablet 500 mg PO Q8H 9 Days Qty: 27 0RF furosemide [Lasix] 20 mg tablet 20 mg PO DAILY 20 Days Qty: 20 0RF Discharge Orders: Discharge Order (Routine); Ordered 09/24/22 Ordered By: Jesse Franz Admission Data Admit Date/Time: 09/19/22 22:21 Attending Provider: Greta Yanez Admit Provider: Isabel Dozier Primary Care Provider: Rik Redding Other Providers: Isabel Dozier ; Mable Molina ; Salome Orlando Other Interventions: Discharge Summary Assessment (RN) Last Done: 09/24/22 14:35 Supervising Physician Co-Signing Physician Notes 62-year-old male with no significant past medical history presenting with painless jaundice in setting of pancreatic mass. Bilirubin levels improved significantly, remain elevated at total 11.3 and direct 5.1 on discharge. Patient provided with prescription for ciprofloxacin and metronidazole to complete antibiotic therapy following stent placement. Biopsies obtained pending. Patient advised close follow-up with his PCP in the next 3 days for recheck of labs and transition of care follow-up. Examined patient independently, agree with documented history, physical exam, and plan of resident physician.
== END 2022-09-24 15:42 | disposition home or self-care (01) | DRG 436 ==
LOC: ED 16:21 → SUATTDRO 22:21 → 3N 22:21